=== PATIENT | male | born 1970 | race Caucasian/White ===

== ENCOUNTER 2017-04-20 14:31 | Inpatient (IN) | payer MEDICARE, SELFPAY ==
[2017-04-20 14:31] VITALS: BP 142/99; PULSE 110; RESP 14; TEMP 37.2; O2SAT 100; BMI 23.5
--- NOTE | 2017-04-20 15:21 | CT_ITS ---
STUDY: CT ABDOMEN AND PELVIS WITHOUT CONTRAST REASON FOR EXAM: Male, 47 years old. Small bowel obstruction. History of metastatic colon cancer, colectomy 2012. Also history of partial hepatectomy, cholecystectomy, right ureteral stent. RADIATION DOSAGE (If Supplied By Facility): CTDIvol = ( 9.71 ) mGy, DLP = ( 529.80 ) mGycm TECHNIQUE: Transaxial images were obtained from the dome of the diaphragm to the symphysis pubis without oral contrast, and without intravenous contrast. Sagittal and coronal images were reconstructed. Individualized dose optimization techniques were used for this CT. COMPARISON: CT abdomen pelvis April 20, 2012. FINDINGS: On the first image, there is a possible spiculated nodule in the lingula of the left upper lobe 10 mm. Subsegmental airspace disease with probable atelectasis seen in the right base, predominantly the posterolateral right lower lobe The visualized portions of the heart are within normal limits. There is a suture/clip line along the expected level of the falciform ligament, and the left/medial lobe of liver is absent. There is heterogeneous density of the liver. A 6-7 mm low-density is again noted in the posterior margin of the right lobe on series 1002 image 43, but no other focal lesion is clearly defined. The portal vein diameter is 15.5 mm. There are surgical clips in the gallbladder fossa consistent with a prior cholecystectomy. The common bile duct diameter is 5 mm. Normal spleen. Normal pancreas. Normal bilateral adrenal glands. There is a double-J ureteral stent extending from the right renal pelvis to the urinary bladder. There is moderate hydroureteronephrosis, unchanged to slightly worsened from previous exam when a stent wasn't present. Normal left kidney. There is a very small hiatal hernia. There is a suture line around the mid rectum. In the low abdomen there is poorly defined, irregular, spiculated mesenteric soft tissue density that is adherent to/retracting adjacent loops of colon and small bowel. The boundaries of closely adjacent bowel loops are difficult to discern, but this appears to be the transition point of a few distended gas and fluid filled segments of small bowel extending from the upper to mid/low abdomen. Normal caliber of the colon. There is non-visualization of the appendix. There is ill-defined mild stranding with nodularity as well as minimally complicated/proteinaceous fluid in the right anterolateral omentum, worrisome for neoplastic deposits. There is mild atherosclerotic calcification of the abdominal aorta, without a demonstrated aneurysm. Normal inferior vena cava. Normal retroperitoneum. Normal urinary bladder. There are coarse calcifications in the bilateral seminal vesicles.Normal size prostate gland, with vague 9 mm mildly hyperdense nodule as right posterior margin. There is a right-sided inguinal hernia containing adipose tissue. There is a left-sided inguinal hernia containing adipose tissue. There is degenerative disc height narrowing and endplate spondylosis at L5-S1. Moderately well-defined cystic degenerative change seen in the anterior superior neck of the right femur. CT/Abdomen/Pelvis without Cont IMPRESSION: 1. Findings strongly suspicious for peritoneal/omental metastatic neoplasia in the right anterolateral abdomen. 2. Prior surgery at the level the rectum. Above this, there are several loops of inseparable small bowel and colon, with the appearance of poorly defined, irregular shaped retractile soft tissue between the segments, either scar or additional neoplasia. It is difficult to define one bowel segment from another at this level, but this appears to be the transition point of a mild to moderate partial small bowel obstruction. No free gas. 3. Double-J right ureteral stent in place. However, there is moderate right hydroureteronephrosis that is slightly worsened from 2013, when the ureteral stent was not present. 4. Left partial hepatectomy. The remnant liver has a heterogeneous texture. A small lesion/cyst in the posterior right lobe is stable, but other possible liver masses are not clearly defined. 5. Prior cholecystectomy. 6. 10 mm spiculated nodule suggested in the lingula of the left upper lobe on the first image. There is probable subsegmental atelectasis in the right lung base. 7. Coarse calcifications in the bilateral seminal vesicles. Vague 9 mm hyperdense nodule suggested in the right posterior margin of the prostate gland. If clinically warranted, this can be further characterized with MRI or transrectal ultrasound. 8. Bilateral fat-containing inguinal hernias are grossly unchanged. Electronically Signed: Omar Berkowitz MD at 16:52 EST , Service support ,
[2017-04-20 15:30] LABS: Absolute Lymphocyte Count 0.92 X10^3/ul (0.83-4.51); Absolute Neutrophil Count 3.8 X10^3/uL (2.0-7.7); Eosinophil# 0.07 X10^3/uL; Eosinophils% 1.4 % (0-5); Hematocrit 43.5 % (40-54); Hemoglobin 14.3 g/dl (13.0-16.5); Lymphocyte # 0.92 X10^3/ul (4.0); Lymphocyte % 18.5 % (19-41); Mean Corp Hgb Conc 32.9 g/gl (32-36); Mean Corpuscular Hgb 31.6 pg (27.0-32.0); Mean Platelet Vol. 9.4 fl (6.2-12.0); Monocyte# 0.23 X10^3/uL; Monocyte% 4.6 % (0-10); Neutrophil # 3.75 X10^3/uL (2.7-7.7); Neutrophil % 75.3 % (47-70); Platelet Count 273 K/mm3 (150-450); RBC Distribution Width SD 48.6 fl (35.1-43.9); Red Blood Count 4.53 M/mm3 (4.6-6.2)
[2017-04-20 15:31] LABS: POSITIVE COUNT NO; POSITIVE DIFFERENTIAL NO; POSITIVE MORPHOLOGY NO
[2017-04-20 15:49] LABS: AST(SGOT) 19 U/L (15-37); Alanine Aminotransfer ALT/SGPT 27 U/L (16-61); Albumin, Serum 3.2 g/dL (3.2-5.0); Alkaline Phosphatase 97 U/L (45-117); Anion Gap 8 (5-15); BUN 12 mg/dL (7-18); BUN/Creat Ratio 13.9 RATIO (10-20); Calcium,Total 8.5 mg/dL (8.5-10.1); Chloride 108 mmol/L (98-107); Creatinine, Serum 0.86 mg/dL (0.70-1.30); EST Glomerular Filtration Rate 100 mL/min (>60); Est Glom Filt Rate - Afr Amer 121 mL/min (>60); Estimated Creatinine Clearance 108.46 ml/min; Globulin 3.6 g/dL (2.2-4.2); Glucose 95 mg/dL (74-106); Lipase 123 U/L (73-393); Potassium 3.5 mmol/L (3.5-5.1); Protein, Total 6.8 g/dL (6.4-8.2); Sodium Level 142 mmol/L (136-145)
[2017-04-20] MEDS: HYDROmorphone 1 MG/ML Syringe IV (15:49)
[2017-04-20] MEDS: 0.9% Normal Saline 1,000 ML 1000 ML IV (15:49)
[2017-04-20] MEDS: Ondansetron 4 MG/2 ML Vial IV (15:49)
--- NOTE | 2017-04-20 17:43 | CT_ITS ---
STUDY: CT ABDOMEN AND PELVIS WITHOUT CONTRAST REASON FOR EXAM: Male, 47 years old. Bowel obstruction. RADIATION DOSAGE (If Supplied By Facility): CTDIvol = ( 8.14 ) mGy, DLP = ( 434.99 ) mGycm TECHNIQUE: Transaxial images were obtained from the dome of the diaphragm to the symphysis pubis with oral contrast, and without intravenous contrast. Sagittal and coronal images were reconstructed. Individualized dose optimization techniques were used for this CT. COMPARISON: Including earlier the same day and April 20, 2012. FINDINGS: There is right lower lung airspace consolidation. There is 0.0 cm left lower lung nodule. The visualized portions of the heart are within normal limits. Partial resection of the left side of the liver. There is stable 7 mm hypodensity in the right lobe Normal gallbladder and extrahepatic biliary system. Normal spleen. Normal pancreas. Normal bilateral adrenal glands. There is stent extending from the right renal pelvis to the urinary bladder. There is moderate right hydronephrosis. Normal left kidney. There is a small hiatal hernia. There are dilated loops of the small intestine with a non-distended colon consistent with a small bowel obstruction. There is transition point in the right lower quadrant. Postoperative change of the distal colon. There is non-visualization of the appendix. There are ill-defined peritoneal and/or omental masses in the right mid abdomen with ascites, series 2 images the through There is atherosclerotic calcification of the abdominal aorta, without a demonstrated aneurysm. Normal inferior vena cava. Normal retroperitoneum. Normal urinary bladder. There is absence of the uterus consistent with a prior hysterectomy. Normal abdominal wall. There is degenerative change at L5-S1. CT/Abdomen/Pel W ORAL Cont Only IMPRESSION: Small bowel obstruction. Transition point in the right lower quadrant. Peritoneal carcinomatosis. Right lower lung consolidation. Left lower lung nodule. Right hydronephrosis with stent in place. Electronically Signed: Phillip Hwang MD at 20:04 EST , Service support ,
[2017-04-20 17:50] VITALS: BP 134/96; PULSE 96; RESP 18; O2SAT 97
--- NOTE | 2017-04-20 19:31 | ED.VISSUMM ---
- ER Visit Summary Date of Service: 04/20/17 Chief Complaint: Abdominal pain History of Present Illness: The patient is a [address] Haynes. He reports that he has diffuse abdominal pain that began approximately 3 weeks ago. Is a continuous waxing and waning pain. Describes it as aching and cramping. Is 7 out of 10 at worst and 410 currently. Is worsened by eating. Is relieved by nothing. He reports he has been nausea and vomited 2-3?2 days ago. He did not throw up yesterday or today. He reports that he took 2 doses of MiraLAX approximately a week ago without success. He took a stool softener 2 days ago. Reports he has had 2 episodes of a small amount of diarrhea in the past 3 days. He does complain of decreased flatus. Also complains of decreased urinary output. Patient has a history of colon cancer with metastases to the liver and lungs. He has had a partial liver resection, partial colectomy, and is currently on oral chemotherapy. He denies any fever or chills. He does have a chronic cough that is unchanged. Physical Examination: Vitals: Stable. Afebrile. General: Well-nourished and well-developed. Head: Normocephalic atraumatic. Neck: Supple, no lymphadenopathy. No JVD. Nontender. Cardiovascular: Regular rate and rhythm. No murmurs. Respiratory: No respiratory distress. Clear to auscultation bilaterally. Abdominal: Soft, mild diffuse tenderness to palpation, slight distention and hypoactive bowel sounds. No guarding, rebound, or peritoneal signs. Back: Nontender. Extremities: Nontender, no edema. Skin: Normal color, no rash. Neurologic: Alert and oriented ?3. Cranial nerves II through XII are intact. Normal strength and sensation. Psych: Normal affect. Test Results: CBC is remarkable for segment neutrophils of 75 and lymphocytes of 18. Chem-7 is more for chloride 108. LFTs are normal. Lipase is normal. Clinical Impression(s) from Imaging Studies Abdomen/Pelvis CT 04/20/17 15:21 IMPRESSION: 1. Findings strongly suspicious for peritoneal/omental metastatic neoplasia in the right anterolateral abdomen. 2. Prior surgery at the level the rectum. Above this, there are several loops of inseparable small bowel and colon, with the appearance of poorly defined, irregular shaped retractile soft tissue between the segments, either scar or additional neoplasia. It is difficult to define one bowel segment from another at this level, but this appears to be the transition point of a mild to moderate partial small bowel obstruction. No free gas. 3. Double-J right ureteral stent in place. However, there is moderate right hydroureteronephrosis that is slightly worsened from 2013, when the ureteral stent was not present. 4. Left partial hepatectomy. The remnant liver has a heterogeneous texture. A small lesion/cyst in the posterior right lobe is stable, but other possible liver masses are not clearly defined. 5. Prior cholecystectomy. 6. 10 mm spiculated nodule suggested in the lingula of the left upper lobe on the first image. There is probable subsegmental atelectasis in the right lung base. 7. Coarse calcifications in the bilateral seminal vesicles. Vague 9 mm hyperdense nodule suggested in the right posterior margin of the prostate gland. If clinically warranted, this can be further characterized with MRI or transrectal ultrasound. 8. Bilateral fat-containing inguinal hernias are grossly unchanged. Abdomen CT 04/20/17 17:43 IMPRESSION: Small bowel obstruction. Transition point in the right lower quadrant. Peritoneal carcinomatosis. Right lower lung consolidation. Left lower lung nodule. Right hydronephrosis with stent in place. Emergency Department Course and Treatment: Patient had his pain treated with Dilaudid and was given Zofran IV. He has not vomited or had diarrhea while here. Treatment Plan: He was discussed with Dr. Haynes and Dr. Hung. A CT abdomen and pelvis with p.o. contrast will be obtained tonight to see if there is a transition point for the partial small bowel obstruction. This will be followed with a plain film tomorrow to see if the contrast is moving passed any personal obstructions. Patient does understand if this is not improving with conservative treatment that he may require a surgery. He also understands that if that surgery is necessary it could potentially require transfer to a tertiary care center. He had his prior surgeries done at [facility] by Dr. Rivera. Patient was also discussed with Dr. Charles who has admitted him. Disposition: Admitted in stable condition. Impression: 1. Peritoneal/omental metastatic disease. 2. Colon cancer on chemotherapy. 3. Small bowel obstruction. This note was generated with [employer] software. It may contain incorrect words, spelling, and punctuation that were not noted in review of the chart prior to signing ED Disposition - Plan for ED Patient: Chief Complaint: Abd Pain Referrals: Care Physician,No Primary [Primary Care Provider] -
[2017-04-20 20:11] VITALS: BP 147/101; PULSE 102; RESP 18; O2SAT 98
--- NOTE | 2017-04-20 21:11 | PCM.HP.STD ---
Problem List (1) Colon cancer metastasized to liver Status: Chronic (2) SBO (small bowel obstruction) Status: Acute History of Present Illness Date of Admission: 04/20/17 Chief Complaint: abdominal pain The patient is a 47 year old M with a known history of a stage IV colon cancer presents with a three-week history of abdominal pain. Patient states that he has had some abdominal pain with distention over the past few weeks. Thought was related with constipation so took some stool softeners which did give him some diarrhea but did not alleviate his abdominal pain. Patient is also been having some intermittent nausea and vomiting sometimes associated with eating and drinking. So given the fact the patient was not getting better patient presented to the emergency room. Patient underwent a CAT scan that showed a likely small bowel obstruction with a transition point. Dr. Giang, of oncology was contacted and told the emergency room physician that he is concerned patient may need a diverting colostomy. Dr. Hung, of general surgery, was contacted by the emergency room and is and would evaluate the patient's case in the morning. Is feeling fairly comfortable at this time. Patient states that he did have a significant bowel obstruction when his colon cancer was diagnosed several years back. At that time his abdominal pain was much more severe and was not passing any gas at that time. [] Past Medical History Past Medical History (Chronic Problems): Chronic Problems Colon cancer metastasized to liver (Chronic) Allergies No Known Allergies Allergy (Verified 04/20/17 14:34) Home Medications: Ambulatory Orders Medication Instructions Recorded Omeprazole [Prilosec] 20 mg PO DAILY 08/06/15 Oxycodone HCl/Acetaminophen 1 tablet PO Q6H PRN PRN 08/06/15 [Percocet 5/325] Surgical History: - - Partial colectomy. Partial hepatectomy. Ureteral stents. Psychiatric History: No pertinent psych hx Smoking Status: Former smoker Tobacco Use: Non-smoker Alcohol: Occasional - States that he drinks 3 vodka cranberries per day. Drugs: None - *Family History Maternal History Items: - - No history of colon cancer Review of Systems Constitutional: Reports: - - States that he has cut back on what he is eating given his abdominal complaints at this time.. Denies: Anorexia, Chills, Fever Eyes: Denies: Blurred vision, Double vision HEENT: Denies: Head Aches, Sinus Congestion, Sinus Drainage Cardiovascular: Denies: Chest Pain, Palpitations Respiratory: Denies: Cough, Shortness of breath at rest, Sputum production Gastrointestinal: Reports: Abdominal Pain, Diarrhea, Nausea, Vomiting Genitourinary: Denies: Dysuria Musculoskeletal: Denies: Joint Pain, Joint Tenderness Skin: Denies: Rash, Wounds Neurological: Denies: Numbness, Tingling, Focal weakness Psychiatric: Denies: Anxiety, Depression Endocrine: Denies: Change in Body Habitus, Heat/ Cold Intolerance Hematologic/ Lymphatic: Denies: Easy Bruising, Easy Bleeding, Hx of blood clot VTE Information - Inpt Only VTE Present on Admission: No VTE Pharm Prophylaxis ordered?: Yes Patient Problems: Active and Suspected Problems SBO (small bowel obstruction) (Acute) - Physical Exam General: Alert, Cooperative, No apparent distress, - - No acute distress. HEENT: Atraumatic, Normocephalic, - - No icterus Oral: Moist Mucosa, No Gingival or Mucosal Lesions/ Ulcerations Neck: No Nodes, Thyroid Normal Size and Texture Lungs: Clear to auscultation, Normal air movement, No rhonchi, No wheeze Cardiovascular: Regular rate, Regular Rhythm, Normal S1, Normal S2 Abdomen: Hypoactive Bowel Sounds, Distended - Only distended but not taut, Tender - Slightly tender. Extremities: No edema, No Calf Tenderness Skin: No rashes, No breakdown Musculoskeletal: No Tenderness to Palpation of Joints or Extremities, No Muscle Wasting Neurological: Neuro grossly intact, Sensory exam intact to light touch and pain, Coordination normal Psych/Mental Status: Normal Affect, Appropriate Vital Signs Temp Pulse Resp BP Pulse Ox 37.2 C 102 H 18 147/101 H 98 04/20/17 14:31 04/20/17 20:11 04/20/17 20:11 04/20/17 20:11 04/20/17 20:11 Oxygen Delivery Method Room Air Weight: 74.389 kg Body Mass Index (BMI) 23.5 Laboratory Tests Past 24 Hrs 04/20/17 04/20/17 15:15 15:15 WBC 5.0 RBC 4.53 L Hgb 14.3 Hct 43.5 MCV 96.0 H MCH 31.6 MCHC 32.9 RDW 14.0 RDW Differential 48.6 H Plt Count 273 MPV 9.4 Immature Gran % (Auto) 0.200 Neut % (Auto) 75.3 H Lymph % (Auto) 18.5 L [place] % (Auto) 4.6 Eos % (Auto) 1.4 Baso % (Auto) 0.0 Absolute Neuts (auto) 3.8 Absolute Lymphs (auto) 0.92 Total Counted Not Reportable Sodium 142 Potassium 3.5 Chloride 108 H Carbon Dioxide 26.0 Anion Gap 8 BUN 12 Creatinine 0.86 Estim Creat Clear Calc 108.46 Est GFR (MDRD) Af Amer 121 Est GFR (MDRD) Non-Af 100 BUN/Creatinine Ratio 13.9 Glucose 95 Calcium 8.5 Total Bilirubin 0.50 Direct Bilirubin 0.20 AST 19 ALT 27 Alkaline Phosphatase 97 Total Protein 6.8 Albumin 3.2 Globulin 3.6 Lipase 123 Clinical Impression(s) from Imaging Studies Abdomen/Pelvis CT 04/20/17 15:21 IMPRESSION: 1. Findings strongly suspicious for peritoneal/omental metastatic neoplasia in the right anterolateral abdomen. 2. Prior surgery at the level the rectum. Above this, there are several loops of inseparable small bowel and colon, with the appearance of poorly defined, irregular shaped retractile soft tissue between the segments, either scar or additional neoplasia. It is difficult to define one bowel segment from another at this level, but this appears to be the transition point of a mild to moderate partial small bowel obstruction. No free gas. 3. Double-J right ureteral stent in place. However, there is moderate right hydroureteronephrosis that is slightly worsened from 2013, when the ureteral stent was not present. 4. Left partial hepatectomy. The remnant liver has a heterogeneous texture. A small lesion/cyst in the posterior right lobe is stable, but other possible liver masses are not clearly defined. 5. Prior cholecystectomy. 6. 10 mm spiculated nodule suggested in the lingula of the left upper lobe on the first image. There is probable subsegmental atelectasis in the right lung base. 7. Coarse calcifications in the bilateral seminal vesicles. Vague 9 mm hyperdense nodule suggested in the right posterior margin of the prostate gland. If clinically warranted, this can be further characterized with MRI or transrectal ultrasound. 8. Bilateral fat-containing inguinal hernias are grossly unchanged. Electronically Signed: Omar Berkowitz MD at 16:52 EST , Service support , Abdomen CT 04/20/17 17:43 IMPRESSION: Small bowel obstruction. Transition point in the right lower quadrant. Peritoneal carcinomatosis. Right lower lung consolidation. Left lower lung nodule. Right hydronephrosis with stent in place. Electronically Signed: Phillip Hwang MD at 20:04 EST , Service support , Assessment/Plan Active and Suspected Problems SBO (small bowel obstruction) (Acute) 1. Small bowel obstruction Patient with a noted transition point may related with carcinomatosis or related with prior scar tissue. Consultation The meantime, conservative measures: IV fluids, n.p.o. except for sips and chips, pain control and antiemetics. This is not a surgical emergency at this time. 2. Stage IV colon cancer Patient was on some oral chemotherapy, presumably under the auspices of palliation. Chemotherapy be held for now in anticipation of additional surgical intervention, if necessary. Further goals of care and alternative treatments will need to be assessed by oncology. Holding off on consulting oncology at this time pending neurosurgery's input. 3. Hydronephrosis Patient with stent in place. Presumably this is related with patient's colon cancer. Patient to follow-up with Dr. Caraballo as outpatient 4. DVT prophylaxis with Lovenox Code Visit Inpatient E&M: 55587 In Hosp L3
--- NOTE | 2017-04-20 21:21 | HP.PCM_ITS ---
Problem List (1) Colon cancer metastasized to liver Status: Chronic (2) SBO (small bowel obstruction) Status: Acute History of Present Illness Date of Admission: 04/20/17 Chief Complaint: abdominal pain The patient is a 47 year old M with a known history of a stage IV colon cancer presents with a three-week history of abdominal pain. Patient states that he has had some abdominal pain with distention over the past few weeks. Thought was related with constipation so took some stool softeners which did give him some diarrhea but did not alleviate his abdominal pain. Patient is also been having some intermittent nausea and vomiting sometimes associated with eating and drinking. So given the fact the patient was not getting better patient presented to the emergency room. Patient underwent a CAT scan that showed a likely small bowel obstruction with a transition point. Dr. Giang, of oncology was contacted and told the emergency room physician that he is concerned patient may need a diverting colostomy. Dr. Hung, of general surgery, was contacted by the emergency room and is and would evaluate the patient's case in the morning. Is feeling fairly comfortable at this time. Patient states that he did have a significant bowel obstruction when his colon cancer was diagnosed several years back. At that time his abdominal pain was much more severe and was not passing any gas at that time. [] Past Medical History Past Medical History (Chronic Problems): Chronic Problems Colon cancer metastasized to liver (Chronic) Allergies No Known Allergies Allergy (Verified 04/20/17 14:34) Home Medications: Ambulatory Orders Medication Instructions Recorded Omeprazole [Prilosec] 20 mg PO DAILY 08/06/15 Oxycodone HCl/Acetaminophen 1 tablet PO Q6H PRN PRN 08/06/15 [Percocet 5/325] Surgical History: - - Partial colectomy. Partial hepatectomy. Ureteral stents. Psychiatric History: No pertinent psych hx Smoking Status: Former smoker Tobacco Use: Non-smoker Alcohol: Occasional - States that he drinks 3 vodka cranberries per day. Drugs: None - *Family History Maternal History Items: - - No history of colon cancer Review of Systems Constitutional: Reports: - - States that he has cut back on what he is eating given his abdominal complaints at this time.. Denies: Anorexia, Chills, Fever Eyes: Denies: Blurred vision, Double vision HEENT: Denies: Head Aches, Sinus Congestion, Sinus Drainage Cardiovascular: Denies: Chest Pain, Palpitations Respiratory: Denies: Cough, Shortness of breath at rest, Sputum production Gastrointestinal: Reports: Abdominal Pain, Diarrhea, Nausea, Vomiting Genitourinary: Denies: Dysuria Musculoskeletal: Denies: Joint Pain, Joint Tenderness Skin: Denies: Rash, Wounds Neurological: Denies: Numbness, Tingling, Focal weakness Psychiatric: Denies: Anxiety, Depression Endocrine: Denies: Change in Body Habitus, Heat/ Cold Intolerance Hematologic/ Lymphatic: Denies: Easy Bruising, Easy Bleeding, Hx of blood clot VTE Information - Inpt Only VTE Present on Admission: No VTE Pharm Prophylaxis ordered?: Yes Patient Problems: Active and Suspected Problems SBO (small bowel obstruction) (Acute) - Physical Exam General: Alert, Cooperative, No apparent distress, - - No acute distress. HEENT: Atraumatic, Normocephalic, - - No icterus Oral: Moist Mucosa, No Gingival or Mucosal Lesions/ Ulcerations Neck: No Nodes, Thyroid Normal Size and Texture Lungs: Clear to auscultation, Normal air movement, No rhonchi, No wheeze Cardiovascular: Regular rate, Regular Rhythm, Normal S1, Normal S2 Abdomen: Hypoactive Bowel Sounds, Distended - Only distended but not taut, Tender - Slightly tender. Extremities: No edema, No Calf Tenderness Skin: No rashes, No breakdown Musculoskeletal: No Tenderness to Palpation of Joints or Extremities, No Muscle Wasting Neurological: Neuro grossly intact, Sensory exam intact to light touch and pain , Coordination normal Psych/Mental Status: Normal Affect, Appropriate Vital Signs Temp Pulse Resp BP Pulse Ox 37.2 C 102 H 18 147/101 H 98 04/20/17 14:31 04/20/17 20:11 04/20/17 20:11 04/20/17 20:11 04/20/17 20:11 Oxygen Delivery Method Room Air Weight: 74.389 kg Body Mass Index (BMI) 23.5 Laboratory Tests Past 24 Hrs 04/20/17 04/20/17 15:15 15:15 WBC 5.0 RBC 4.53 L Hgb 14.3 Hct 43.5 MCV 96.0 H MCH 31.6 MCHC 32.9 RDW 14.0 RDW Differential 48.6 H Plt Count 273 MPV 9.4 Immature Gran % (Auto) 0.200 Neut % (Auto) 75.3 H Lymph % (Auto) 18.5 L [place] % (Auto) 4.6 Eos % (Auto) 1.4 Baso % (Auto) 0.0 Absolute Neuts (auto) 3.8 Absolute Lymphs (auto) 0.92 Total Counted Not Reportable Sodium 142 Potassium 3.5 Chloride 108 H Carbon Dioxide 26.0 Anion Gap 8 BUN 12 Creatinine 0.86 Estim Creat Clear Calc 108.46 Est GFR (MDRD) Af Amer 121 Est GFR (MDRD) Non-Af 100 BUN/Creatinine Ratio 13.9 Glucose 95 Calcium 8.5 Total Bilirubin 0.50 Direct Bilirubin 0.20 AST 19 ALT 27 Alkaline Phosphatase 97 Total Protein 6.8 Albumin 3.2 Globulin 3.6 Lipase 123 Clinical Impression(s) from Imaging Studies Abdomen/Pelvis CT 04/20/17 15:21 IMPRESSION: 1. Findings strongly suspicious for peritoneal/omental metastatic neoplasia in the right anterolateral abdomen. 2. Prior surgery at the level the rectum. Above this, there are several loops of inseparable small bowel and colon, with the appearance of poorly defined, irregular shaped retractile soft tissue between the segments, either scar or additional neoplasia. It is difficult to define one bowel segment from another at this level, but this appears to be the transition point of a mild to moderate partial small bowel obstruction. No free gas. 3. Double-J right ureteral stent in place. However, there is moderate right hydroureteronephrosis that is slightly worsened from 2013, when the ureteral stent was not present. 4. Left partial hepatectomy. The remnant liver has a heterogeneous texture. A small lesion/cyst in the posterior right lobe is stable, but other possible liver masses are not clearly defined. 5. Prior cholecystectomy. 6. 10 mm spiculated nodule suggested in the lingula of the left upper lobe on the first image. There is probable subsegmental atelectasis in the right lung base. 7. Coarse calcifications in the bilateral seminal vesicles. Vague 9 mm hyperdense nodule suggested in the right posterior margin of the prostate gland. If clinically warranted, this can be further characterized with MRI or transrectal ultrasound. 8. Bilateral fat-containing inguinal hernias are grossly unchanged. Electronically Signed: Omar Berkowitz MD at 16:52 EST , Service support , Abdomen CT 04/20/17 17:43 IMPRESSION: Small bowel obstruction. Transition point in the right lower quadrant. Peritoneal carcinomatosis. Right lower lung consolidation. Left lower lung nodule. Right hydronephrosis with stent in place. Electronically Signed: Phillip Hwang MD at 20:04 EST , Service support , Assessment/Plan Active and Suspected Problems SBO (small bowel obstruction) (Acute) 1. Small bowel obstruction * Patient with a noted transition point may related with carcinomatosis or related with prior scar tissue. * Consultation * The meantime, conservative measures: IV fluids, n.p.o. except for sips and chips, pain control and antiemetics. * This is not a surgical emergency at this time. 2. Stage IV colon cancer * Patient was on some oral chemotherapy, presumably under the auspices of palliation. * Chemotherapy be held for now in anticipation of additional surgical intervention, if necessary. * Further goals of care and alternative treatments will need to be assessed by oncology. Holding off on consulting oncology at this time pending neurosurgery' s input. 3. Hydronephrosis * Patient with stent in place. Presumably this is related with patient's colon cancer. * Patient to follow-up with Dr. Caraballo as outpatient 4. DVT prophylaxis with Lovenox Code Visit Inpatient E&M: 98691 Init Hosp L3
[2017-04-20 21:39] VITALS: BMI 23.2; BMI 23.3
[2017-04-20 22:06] VITALS: BP 140/92; PULSE 83; RESP 18; TEMP 37; O2SAT 96
[2017-04-20] MEDS: 0.9% Normal Saline 1,000 ML 125 ML IV (22:29)
[2017-04-21 04:00] VITALS: BP 122/78; PULSE 88; RESP 16; TEMP 36.9; O2SAT 99
[2017-04-21] MEDS: 0.9% NaCl VAD Flush 10 ML IV ×2 (06:05→06:06)
[2017-04-21] MEDS: 0.9% Normal Saline 1,000 ML 125 ML IV ×2 (06:18→19:41)
--- NOTE | 2017-04-21 06:21 | RAD_ITS ---
STUDY: X-RAY - ABDOMEN/PELVIS REASON FOR EXAM: Male, 47 years old. History of small bowel obstruction. TECHNIQUE: AP supine and upright views of the abdomen and pelvis. COMPARISON: Comparison is made with prior CT scan the abdomen dated April 20, 2017. FINDINGS: There is elevation of the right hemidiaphragm. Increased markings at the right lung base suggestive of a basilar atelectasis. Oral contrast from prior CT scan is seen in the colon. There is evidence of residual dilated small bowel loops with multiple air-fluid levels in the central portion of the abdomen. And air-fluid level is seen beneath the right hemidiaphragm. This is separate from bowel. On the recent CT scan of the abdomen, this appears to be the fundal portion of the stomach. A right-sided double-J stent is seen with the proximal tip in the right renal pelvis and the distal tip in the bladder. Sutures are seen in the region of the rectum. The patient is status post cholecystectomy. Normal soft tissue structures. Normal visualized osseous structures. RAD/Abd Inc Decub and/or Erect IMPRESSION: Residual dilated small bowel loops with air-fluid levels although contrast is seen throughout the colon. An air-fluid level is seen in the right upper quadrant beneath the right hemidiaphragm. This most likely represents the fundal portion of the stomach. On these CT scan, there is evidence of a rotation along the long axis of the stomach. Right basilar atelectasis with elevation of the right hemidiaphragm. Electronically Signed: Tristan Quezada MD at 9:02 EST Tel [phone], Service support ,
[2017-04-21 07:12] LABS: Absolute Lymphocyte Count 0.87 X10^3/ul (0.83-4.51); Absolute Neutrophil Count 2.6 X10^3/uL (2.0-7.7); Basophil# 0.01 X10^3/uL; Basophil% 0.3 % (0-1); Eosinophil# 0.05 X10^3/uL; Eosinophils% 1.3 % (0-5); Hematocrit 40.5 % (40-54); Hemoglobin 13.1 g/dl (13.0-16.5); Lymphocyte # 0.87 X10^3/ul (4.0); Lymphocyte % 23.1 % (19-41); Mean Corp Hgb Conc 32.3 g/gl (32-36); Mean Corpuscular Hgb 31.1 pg (27.0-32.0); Mean Corpuscular Volume 96.2 fL (80-94); Mean Platelet Vol. 9.3 fl (6.2-12.0); Monocyte% 5.3 % (0-10); Neutrophil # 2.62 X10^3/uL (2.7-7.7); Neutrophil % 69.7 % (47-70); Platelet Count 237 K/mm3 (150-450); RBC Distribution Width SD 48.4 fl (35.1-43.9); Red Blood Count 4.21 M/mm3 (4.6-6.2); White Blood Count 3.8 K/mm3 (4.4-11.0)
[2017-04-21 07:13] LABS: POSITIVE COUNT NO; POSITIVE DIFFERENTIAL NO; POSITIVE MORPHOLOGY NO
[2017-04-21 07:25] LABS: Anion Gap 11 (5-15); BUN 10 mg/dL (7-18); BUN/Creat Ratio 13.5 RATIO (10-20); Calcium,Total 8.2 mg/dL (8.5-10.1); Chloride 109 mmol/L (98-107); Creatinine, Serum 0.74 mg/dL (0.70-1.30); EST Glomerular Filtration Rate 120 mL/min (>60); Est Glom Filt Rate - Afr Amer 145 mL/min (>60); Estimated Creatinine Clearance 126.05 ml/min; Glucose 77 mg/dL (74-106); Potassium 3.8 mmol/L (3.5-5.1); Sodium Level 142 mmol/L (136-145)
[2017-04-21 10:12] VITALS: BP 122/65; PULSE 85; RESP 18; TEMP 37.1; O2SAT 99
--- NOTE | 2017-04-21 10:37 | CASEMGMT ---
BRIELLE GUAMAN Face to Face with patient for initial transition planning/care coordination assessment. BRIELLE GUAMAN introduced self and role at [facility]. Patient lying in bed, alert and oriented. Patient willing to participate in assessment and is able to answer all questions appropriately. Care providers, pharmacy, and demographics verified. See link attached. Patient wishes to discharge home, denies need for home health at this time. Patient states that he does not have a PCP but see Dr. Haynes. RN ROWENA offered to assist patient with setting up PCP, patient denied assistance and stated he will just see Dr. Haynes. Patient states he has no further needs or concerns at this time. CM to follow for discharge planning needs that may arise. Disposition Plan: Patient to discharge home with family support and follow-up plans in place.
[2017-04-21] MEDS: Enoxaparin 40 MG/0.4 ML Syringe SC (10:55)
--- NOTE | 2017-04-21 12:49 | PCM.PROGNOTE ---
Patient Problems: Active and Suspected Problems SBO (small bowel obstruction) (Acute) Subjective: Chief complaint: Follow-up of admission for small bowel obstruction. Patient seen and examined. No acute events overnight. This morning, he has no more abdominal pain. He had a bowel movement last night with loose stool. This morning, had a small bowel movement with gas and he has been passing flatus. Denied nausea vomiting. Vital signs are stable. - Physical Exam General: Alert, Oriented x3, Cooperative, No apparent distress HEENT: Atraumatic, EOMI Oral: Moist Mucosa, No Gingival or Mucosal Lesions/ Ulcerations Neck: Supple, No JVD, Negative Carotid Bruits, Trachea Midline, Thyroid Normal Size and Texture Lungs: Clear to auscultation, No rhonchi, No wheeze, No rales Cardiovascular: Regular Rhythm, Normal S1, Normal S2, No murmurs Abdomen: Bowel Sounds Present, Soft, Non Tender, Non-Distended, No Hepato-splenomegaly, Hyperactive Bowel Sounds Extremities: No clubbing, No cyanosis, No edema Skin: No rashes, No breakdown Lymphatic: No Cervical, Supraclavicular, or Inguinal Adenopathy Neurological: Cranial nerves II-XII grossly intact, Motor Exam 5/5 strength throughout Psych/Mental Status: Normal Affect, Appropriate, Alert and oriented to time, place, person, mood and affect Vital Signs Temp Pulse Resp BP Pulse Ox 98.7 F 85 18 122/65 H 99 04/21/17 10:12 04/21/17 10:12 04/21/17 10:12 04/21/17 10:12 04/21/17 10:12 Oxygen Delivery Method Room Air Weight: 162 lb 2.012 oz Body Mass Index (BMI) 23.2 Intake and Output for Last 24 Hours 04/19/17 04/20/17 04/21/17 23:59 23:59 23:59 Intake Total 933 / 933 Balance 933 / 933 Laboratory Tests Past 24 Hrs 04/21/17 04/21/17 07:00 07:00 WBC 3.8 L RBC 4.21 L Hgb 13.1 Hct 40.5 MCV 96.2 H MCH 31.1 MCHC 32.3 RDW 14.0 RDW Differential 48.4 H Plt Count 237 MPV 9.3 Immature Gran % (Auto) 0.300 Neut % (Auto) 69.7 Lymph % (Auto) 23.1 [place] % (Auto) 5.3 Eos % (Auto) 1.3 Baso % (Auto) 0.3 Absolute Neuts (auto) 2.6 Absolute Lymphs (auto) 0.87 Total Counted Not Reportable Sodium 142 Potassium 3.8 Chloride 109 H Carbon Dioxide 22.0 Anion Gap 11 BUN 10 Creatinine 0.74 Estim Creat Clear Calc 126.05 Est GFR (MDRD) Af Amer 145 Est GFR (MDRD) Non-Af 120 BUN/Creatinine Ratio 13.5 Glucose 77 Calcium 8.2 L Clinical Impression(s) from Imaging Studies Abdomen/Pelvis CT 04/20/17 15:21 IMPRESSION: 1. Findings strongly suspicious for peritoneal/omental metastatic neoplasia in the right anterolateral abdomen. 2. Prior surgery at the level the rectum. Above this, there are several loops of inseparable small bowel and colon, with the appearance of poorly defined, irregular shaped retractile soft tissue between the segments, either scar or additional neoplasia. It is difficult to define one bowel segment from another at this level, but this appears to be the transition point of a mild to moderate partial small bowel obstruction. No free gas. 3. Double-J right ureteral stent in place. However, there is moderate right hydroureteronephrosis that is slightly worsened from 2013, when the ureteral stent was not present. 4. Left partial hepatectomy. The remnant liver has a heterogeneous texture. A small lesion/cyst in the posterior right lobe is stable, but other possible liver masses are not clearly defined. 5. Prior cholecystectomy. 6. 10 mm spiculated nodule suggested in the lingula of the left upper lobe on the first image. There is probable subsegmental atelectasis in the right lung base. 7. Coarse calcifications in the bilateral seminal vesicles. Vague 9 mm hyperdense nodule suggested in the right posterior margin of the prostate gland. If clinically warranted, this can be further characterized with MRI or transrectal ultrasound. 8. Bilateral fat-containing inguinal hernias are grossly unchanged. Electronically Signed: Omar Berkowitz MD at 16:52 EST , Service support , Abdomen CT 04/20/17 17:43 IMPRESSION: Small bowel obstruction. Transition point in the right lower quadrant. Peritoneal carcinomatosis. Right lower lung consolidation. Left lower lung nodule. Right hydronephrosis with stent in place. Electronically Signed: Phillip Hwang MD at 20:04 EST , Service support , Abdomen X-Ray 04/21/17 06:21 IMPRESSION: Residual dilated small bowel loops with air-fluid levels although contrast is seen throughout the colon. An air-fluid level is seen in the right upper quadrant beneath the right hemidiaphragm. This most likely represents the fundal portion of the stomach. On these CT scan, there is evidence of a rotation along the long axis of the stomach. Right basilar atelectasis with elevation of the right hemidiaphragm. Electronically Signed: Tristan Quezada MD at 9:02 EST Tel [phone], Service support , Assessment/Plan Active and Suspected Problems SBO (small bowel obstruction) (Acute) This is a 47 years old male patient admitted because of abdominal pain and he was found to have small bowel obstruction in context of history of stage IV metastatic colon cancer. #1 small bowel obstruction: He is on IV fluids, IV morphine as needed for pain as well as IV antiemetics, started on clear liquids by general surgeons morning. Patient symptoms improved, had bowel movement last night and has been passing flatus. Skin abdomen with oral contrast reviewed, revealed small bowel obstruction with transition point at the right lower quadrant, peritoneal carcinomatosis, a right hydronephrosis with stent in place as well as a right lower lung nodule and right lower lobe consultation. At this time, I doubt pneumonia. This likely because of metastatic colon cancer which was metastasized to lungs and liver. General surgeon on the case. Vital signs are stable. Routine blood work is unremarkable, electrolytes are normal. LFTs and lipase normal. X-ray abdomen today still showing small bowel obstruction. Plan: Continue same treatment. #2 stage IV metastatic colon cancer: With metastasis to liver and lung. Status post partial colectomy, status post resection of the liver metastasis, on chemotherapy. Plan to follow-up with oncology as outpatient. #3 right-sided hydronephrosis: Status post stents. Stable, no acute issues, kidney function is normal. #4 DVT prophylaxis: Subcu Lovenox. This note was generated with [employer] dictation software. It may contain incorrect words, spelling, and punctuation that were not noted in checking the note before signing. Code Visit Inpatient E&M: 87534 Subs Hosp L2
--- NOTE | 2017-04-21 12:55 | PN_ITS ---
Patient Problems: Active and Suspected Problems SBO (small bowel obstruction) (Acute) Subjective: Chief complaint: Follow-up of admission for small bowel obstruction. Patient seen and examined. No acute events overnight. This morning, he has no more abdominal pain. He had a bowel movement last night with loose stool. This morning, had a small bowel movement with gas and he has been passing flatus. Denied nausea vomiting. Vital signs are stable. - Physical Exam General: Alert, Oriented x3, Cooperative, No apparent distress HEENT: Atraumatic, EOMI Oral: Moist Mucosa, No Gingival or Mucosal Lesions/ Ulcerations Neck: Supple, No JVD, Negative Carotid Bruits, Trachea Midline, Thyroid Normal Size and Texture Lungs: Clear to auscultation, No rhonchi, No wheeze, No rales Cardiovascular: Regular Rhythm, Normal S1, Normal S2, No murmurs Abdomen: Bowel Sounds Present, Soft, Non Tender, Non-Distended, No Hepato- splenomegaly, Hyperactive Bowel Sounds Extremities: No clubbing, No cyanosis, No edema Skin: No rashes, No breakdown Lymphatic: No Cervical, Supraclavicular, or Inguinal Adenopathy Neurological: Cranial nerves II-XII grossly intact, Motor Exam 5/5 strength throughout Psych/Mental Status: Normal Affect, Appropriate, Alert and oriented to time, place, person, mood and affect Vital Signs Temp Pulse Resp BP Pulse Ox 98.7 F 85 18 122/65 H 99 04/21/17 10:12 04/21/17 10:12 04/21/17 10:12 04/21/17 10:12 04/21/17 10:12 Oxygen Delivery Method Room Air Weight: 162 lb 2.012 oz Body Mass Index (BMI) 23.2 Intake and Output for Last 24 Hours 04/19/17 04/20/17 04/21/17 23:59 23:59 23:59 Intake Total 933 / 933 Balance 933 / 933 Laboratory Tests Past 24 Hrs 04/21/17 04/21/17 07:00 07:00 WBC 3.8 L RBC 4.21 L Hgb 13.1 Hct 40.5 MCV 96.2 H MCH 31.1 MCHC 32.3 RDW 14.0 RDW Differential 48.4 H Plt Count 237 MPV 9.3 Immature Gran % (Auto) 0.300 Neut % (Auto) 69.7 Lymph % (Auto) 23.1 [place] % (Auto) 5.3 Eos % (Auto) 1.3 Baso % (Auto) 0.3 Absolute Neuts (auto) 2.6 Absolute Lymphs (auto) 0.87 Total Counted Not Reportable Sodium 142 Potassium 3.8 Chloride 109 H Carbon Dioxide 22.0 Anion Gap 11 BUN 10 Creatinine 0.74 Estim Creat Clear Calc 126.05 Est GFR (MDRD) Af Amer 145 Est GFR (MDRD) Non-Af 120 BUN/Creatinine Ratio 13.5 Glucose 77 Calcium 8.2 L Clinical Impression(s) from Imaging Studies Abdomen/Pelvis CT 04/20/17 15:21 IMPRESSION: 1. Findings strongly suspicious for peritoneal/omental metastatic neoplasia in the right anterolateral abdomen. 2. Prior surgery at the level the rectum. Above this, there are several loops of inseparable small bowel and colon, with the appearance of poorly defined, irregular shaped retractile soft tissue between the segments, either scar or additional neoplasia. It is difficult to define one bowel segment from another at this level, but this appears to be the transition point of a mild to moderate partial small bowel obstruction. No free gas. 3. Double-J right ureteral stent in place. However, there is moderate right hydroureteronephrosis that is slightly worsened from 2013, when the ureteral stent was not present. 4. Left partial hepatectomy. The remnant liver has a heterogeneous texture. A small lesion/cyst in the posterior right lobe is stable, but other possible liver masses are not clearly defined. 5. Prior cholecystectomy. 6. 10 mm spiculated nodule suggested in the lingula of the left upper lobe on the first image. There is probable subsegmental atelectasis in the right lung base. 7. Coarse calcifications in the bilateral seminal vesicles. Vague 9 mm hyperdense nodule suggested in the right posterior margin of the prostate gland. If clinically warranted, this can be further characterized with MRI or transrectal ultrasound. 8. Bilateral fat-containing inguinal hernias are grossly unchanged. Electronically Signed: Omar Berkowitz MD at 16:52 EST , Service support , Abdomen CT 04/20/17 17:43 IMPRESSION: Small bowel obstruction. Transition point in the right lower quadrant. Peritoneal carcinomatosis. Right lower lung consolidation. Left lower lung nodule. Right hydronephrosis with stent in place. Electronically Signed: Phillip Hwang MD at 20:04 EST , Service support , Abdomen X-Ray 04/21/17 06:21 IMPRESSION: Residual dilated small bowel loops with air-fluid levels although contrast is seen throughout the colon. An air-fluid level is seen in the right upper quadrant beneath the right hemidiaphragm. This most likely represents the fundal portion of the stomach. On these CT scan, there is evidence of a rotation along the long axis of the stomach. Right basilar atelectasis with elevation of the right hemidiaphragm. Electronically Signed: Tristan Quezada MD at 9:02 EST Tel [phone], Service support , Assessment/Plan Active and Suspected Problems SBO (small bowel obstruction) (Acute) This is a 47 years old male patient admitted because of abdominal pain and he was found to have small bowel obstruction in context of history of stage IV metastatic colon cancer. #1 small bowel obstruction: He is on IV fluids, IV morphine as needed for pain as well as IV antiemetics, started on clear liquids by general surgeons morning. Patient symptoms improved, had bowel movement last night and has been passing flatus. Skin abdomen with oral contrast reviewed, revealed small bowel obstruction with transition point at the right lower quadrant, peritoneal carcinomatosis, a right hydronephrosis with stent in place as well as a right lower lung nodule and right lower lobe consultation. At this time, I doubt pneumonia. This likely because of metastatic colon cancer which was metastasized to lungs and liver. General surgeon on the case. Vital signs are stable. Routine blood work is unremarkable, electrolytes are normal. LFTs and lipase normal. X-ray abdomen today still showing small bowel obstruction. Plan : Continue same treatment. #2 stage IV metastatic colon cancer: With metastasis to liver and lung. Status post partial colectomy, status post resection of the liver metastasis, on chemotherapy. Plan to follow-up with oncology as outpatient. #3 right-sided hydronephrosis: Status post stents. Stable, no acute issues, kidney function is normal. #4 DVT prophylaxis: Subcu Lovenox. This note was generated with [employer] dictation software. It may contain incorrect words, spelling, and punctuation that were not noted in checking the note before signing. Code Visit Inpatient E&M: 71916 Subs Hosp L2
[2017-04-21] MEDS: Alteplase 2 MG/2 ML Vial IV (14:53)
[2017-04-21 16:11] VITALS: BP 132/74; PULSE 80; RESP 18; TEMP 36.6; O2SAT 98
--- NOTE | 2017-04-21 16:48 | CON.PCM_ITS ---
Problem List (1) Colon cancer metastasized to liver Status: Chronic (2) SBO (small bowel obstruction) Status: Acute (3) Ureteral obstruction, right Status: Acute Reason for Consult Date of Consultation: 04/21/17 History of Present Illness: The patient is a 47 year old M who presents with symptoms of small bowel obstruction. The patient has issues with increasing abdominal discomfort following eating for at least the past 3-4 weeks. He presents now with high- grade obstructive type symptoms. He had nausea and vomiting 2 days prior to admission. A CT scan was obtained in the emergency department, which demonstrated advanced metastatic disease with lesions both in the liver and right abdominal cavity with what appears to be significant bulky disease in the right lower quadrant area. The patient was given Gastrografin and this actually demonstrated contrast through to the colon with some improvement in his x-ray imaging of his partial small bowel obstruction. This morning. The history of his colon cancer is as follows: Developed near complete obstipation associated with intermittent rectal bleeding in late 2010/early 2011. Was referred to a car washer who performed a colonoscopy on 05/29/2011. At approximate 20 cm into the left colon, there was an obstructing mass. The scope was not able to be passed. Biopsies were obtained. The mass was tattooed and biopsy demonstrated invasive well to moderately differentiated adenocarcinoma. ? The patient was referred to the [facility] On~06/12/2011, he underwent a laparoscopic converted to open low anterior resection. The operative note indicates there were no palpable lesions on the liver. The surgical pathology demonstrated adenocarcinoma extending to the serosal surface. There was metastatic involvement of 2 of 15 lymph nodes. Pericolonic tumor deposits were observed. There was a biopsy of~right pelvic implant which demonstrated adenocarcinoma. The synoptic reports that the tumor size was 3.1 cm. It was an adenocarcinoma moderately differentiated. Tumor was present at the serosal surface. Lymphovascular invasion was noted to be present and extensive. Perineural invasion was noted to be present and extensive. There were no histologic features suggestive of microsatellite instability. Margins were negative. Radial margin was within 1 mm. 15 lymph nodes were removed, 2 were positive with extranodal extension present. Tumor deposits were noted but the exact number could not be rendered due to the extensive lymphovascular and perineural invasion. Mismatch repair protein expression was present for all 4 proteins tested. ? Radiographic studies are not available this time but the patient did undergo partial hepatectomy on 08/12/2011. The surgical pathology demonstrated there was cholelithiasis and gallbladder and the left lobe partial lobectomy demonstrated moderately differentiated adenocarcinoma consistent with metastatic colon cancer. Margins were free of disease. It appears there was only one liver metastasis per the pathology report. ? The patient was advised to receive chemotherapy but this was delayed by him until 2012. ? He underwent~right ureteral stent placement~and then received 7 cycles FOLFIRI with bevacizumab~between 05/2012 and 12/2012~at [facility]. He said the chemotherapy made him very ill and he had prolonged nausea and vomiting associated with loss of appetite, extensive diarrhea and fatigue. This caused delays in cycles. ? He underwent a~colonoscopy in September 2014. He was observed to have biopsy-proven recurrence at the anastomotic site. CEA is elevated to 78.4 ng/mL. He recalls CEA 02/2014 was 9 ng/mL. ? Previous therapy: 1) FOLFIRI with laurent x7 cycles. 2) FOLFOX x2 then with bevacizumab x3 cycles until 01/21/2015. 3) FOLFIRI with bevacizumab x5 cycles. 4) FOLFIRI x8 cycles. ? Current therapy: 1) FOLFIRI with panitumumab. Past Medical History Past Medical History (Chronic Problems): Chronic Problems Colon cancer metastasized to liver (Chronic) Allergies No Known Allergies Allergy (Verified 04/21/17 13:06) Home Medications: Ambulatory Orders Medication Instructions Recorded Omeprazole [Prilosec] 20 mg PO DAILY 08/06/15 Oxycodone HCl/Acetaminophen 1 tablet PO Q6H PRN PRN 08/06/15 [Percocet 5/325] Surgical History: - - Partial colectomy. Partial hepatectomy. Ureteral stents. Psychiatric History: No pertinent psych hx Smoking Status: Former smoker Tobacco Use: Non-smoker Alcohol: Occasional - States that he drinks 3 vodka cranberries per day. Drugs: None - *Family History Maternal History Items: - - No history of colon cancer Review of Systems Constitutional: Reports: Anorexia, Fatigue. Denies: Chills, Fever, Weight Change HEENT: Denies: Head Aches, Sinus Congestion, Sinus Drainage Cardiovascular: Denies: Chest Pain, Palpitations Respiratory: Denies: Cough, Shortness of breath at rest, Sputum production Gastrointestinal: Reports: Abdominal Pain, Nausea, Vomiting Genitourinary: Denies: Dysuria Musculoskeletal: Denies: Joint Pain, Joint Tenderness Skin: Denies: Rash, Wounds Neurological: Denies: Numbness, Tingling, Focal weakness Psychiatric: Denies: Anxiety, Depression, Homicidal Ideations, Suicidal Ideations Hematologic/ Lymphatic: Denies: Easy Bruising, Easy Bleeding Patient Problems: Active and Suspected Problems SBO (small bowel obstruction) (Acute) - Physical Exam General: Alert, Oriented x3, Cooperative HEENT: Atraumatic, PERRLA, EOMI, Normocephalic Neck: Supple, No JVD, Negative Carotid Bruits Lungs: Clear to auscultation, Normal air movement Cardiovascular: Regular rate, No murmurs Abdomen: Bowel Sounds Present, Soft, Non Tender, Distended - mildly, Tender - mildly, - - Well-healed transverse upper abdominal and lower midline incisions Extremities: No edema, Capillary Refill Less than 3 Seconds Skin: No rashes, No breakdown Musculoskeletal: No Tenderness to Palpation of Joints or Extremities Neurological: Cranial nerves II-XII grossly intact Psych/Mental Status: Normal Affect, Appropriate Vital Signs Temp Pulse Resp BP Pulse Ox 97.8 F 80 18 132/74 H 98 04/21/17 16:11 04/21/17 16:11 04/21/17 16:11 04/21/17 16:11 04/21/17 16:11 Oxygen Delivery Method Room Air Weight: 73.539 kg Body Mass Index (BMI) 23.2 Intake and Output for Last 24 Hours 04/19/17 04/20/17 04/21/17 23:59 23:59 23:59 Intake Total 933 / 933 Balance 933 / 933 Laboratory Tests Past 24 Hrs 04/21/17 04/21/17 07:00 07:00 WBC 3.8 L RBC 4.21 L Hgb 13.1 Hct 40.5 MCV 96.2 H MCH 31.1 MCHC 32.3 RDW 14.0 RDW Differential 48.4 H Plt Count 237 MPV 9.3 Immature Gran % (Auto) 0.300 Neut % (Auto) 69.7 Lymph % (Auto) 23.1 [place] % (Auto) 5.3 Eos % (Auto) 1.3 Baso % (Auto) 0.3 Absolute Neuts (auto) 2.6 Absolute Lymphs (auto) 0.87 Total Counted Not Reportable Sodium 142 Potassium 3.8 Chloride 109 H Carbon Dioxide 22.0 Anion Gap 11 BUN 10 Creatinine 0.74 Estim Creat Clear Calc 126.05 Est GFR (MDRD) Af Amer 145 Est GFR (MDRD) Non-Af 120 BUN/Creatinine Ratio 13.5 Glucose 77 Calcium 8.2 L Assessment/Plan Active and Suspected Problems SBO (small bowel obstruction) (Acute) advanced metastatic colon cancer with metastases to the liver, intraperitoneal metastases and low anterior resection, sigmoid metastases, now with high-grade partial small bowel obstruction Today's KUB demonstrated contrast to the colon and improvement but no complete improvement of small bowel distention. I would currently recommend clear liquids and see how the patient is able to tolerate these fluids. Reviewing the current CAT scan and a previous CAT scan through the [facility] on March 19, the patient has likely multiple areas of metastatic disease within the peritoneal cavity. Further, there is a report that he had biopsy-proven recurrence at the anastomosis in the low anterior area. My plan is to obtain a follow-up KUB to see if his bowel gas pattern is improving. I would also then consider a small bowel follow-through to see if he has multiple areas of partial small bowel obstructions or if this more seems to be contained to the right lower quadrant. I will discuss with Dr. Haynes whether he feels follow-up flexible sigmoidoscopy would be prudent to see if he has progression of his known disease at the anastomotic area. Debridement on these findings, might consider exploration with internal bypass versus ileostomy. I have also contacted surgeons at [facility] to see if they see any role in a more aggressive surgical procedure and debulking for this individual.
[2017-04-21 19:41] VITALS: BP 131/84; PULSE 71; RESP 18; TEMP 36.6; O2SAT 97
--- NOTE | 2017-04-21 22:19 | NURSING ---
Pt has Ensure Alive ordered but on clear liquid diet. Offered to get Ensure Alive changed to Ensure Clear but pt refused and said he does not like Ensure Clear.
[2017-04-22 01:41] VITALS: BP 128/83; PULSE 86; RESP 16; TEMP 36.4; O2SAT 95
[2017-04-22] MEDS: 0.9% Normal Saline 1,000 ML 125 ML IV ×2 (03:34→10:31)
--- NOTE | 2017-04-22 04:31 | NURSING ---
Pt off floor for KUB with [employer]
--- NOTE | 2017-04-22 05:00 | RAD_ITS ---
STUDY: X-RAY - ABDOMEN/PELVIS REASON FOR EXAM: Male, 47 years old. Small bowel obstruction and history of colon cancer TECHNIQUE: AP supine and upright views of the abdomen and pelvis. COMPARISON: April 21, 2017 FINDINGS: Normal visualized lung bases. Progressing obstructive bowel gas pattern with multiple acute air-fluid levels within distended small bowel. Small bowel loops measure up to 6.1 cm in diameter. There is no demonstrated free abdominal air. Transureteral stent on the right. Cholecystectomy clips. Pelvic phleboliths. Pelvic sutures. Normal visualized osseous structures. RAD/Abd Inc Decub and/or Erect IMPRESSION: Progressing obstructive bowel gas pattern. Electronically Signed: Andrew Gates MD at 6:23 EST Tel , Service support ,
--- NOTE | 2017-04-22 06:55 | CT_ITS ---
STUDY: CT ABDOMEN AND PELVIS WITHOUT CONTRAST REASON FOR EXAM: Male, 47 years old. Small bowel obstruction. Colon cancer with chemotherapy and radiation. Liver metastases with partial hepatectomy. RADIATION DOSAGE (If Supplied By Facility): CTDIvol = ( 8.73 ) mGy, DLP = ( 508.36 ) mGycm TECHNIQUE: Transaxial images were obtained from the dome of the diaphragm to the symphysis pubis with oral contrast, and without intravenous contrast. Sagittal and coronal images were reconstructed. Individualized dose optimization techniques were used for this CT. COMPARISON: CT of the abdomen and pelvis, April 20, 2017. FINDINGS: There is a small right pleural effusion with atelectatic changes at the right lung base and slight elevation of the right hemidiaphragm. There is atelectatic changes along the left anterior oblique fissure. The visualized portions of the heart are within normal limits. There is evidence of left hepatectomy. Surgical scars are seen along the medial aspect of the liver. The remaining liver appears to be of uniform density without focal mass. The gallbladder is absent. There is no visualized ductal dilatation. Normal spleen. Normal pancreas. Normal bilateral adrenal glands. The right kidney is of normal size and cortical thickness. There is marked hydronephrosis and hydroureter. There is a ureteral stent with its tip in the distal renal pelvis/proximal ureter. This extends downward into the bladder lumen. The left kidney is of normal size and cortical thickness. There is diffuse hydronephrosis and hydroureter to the level of the bladder without filling defect. There is a type I hiatal hernia. The stomach is otherwise unremarkable. There is diffuse dilatation of mid to distal small bowel loops with air-fluid levels. Proximal jejunum is unremarkable. There is dilatation of the mid and distal small bowel loops with a transition zone in the right central abdomen, best seen on images 134 through 137 and series 4 and on images 50 through 56 of series 601. There is no evidence of small bowel obstruction with passage of contrast seen into the colon. The proximal colon is distended with air and contrast. The descending and rectosigmoid colon are nondistended. There is contrast seen extending into the rectum. There is non-visualization of the appendix. Minimal atherosclerotic changes of the abdominal aorta without aneurysm. Normal inferior vena cava. Normal retroperitoneum. Normal urinary bladder. Normal prostate. There are calcifications within the seminal vesicles. There is no pelvic lymphadenopathy. No free air is seen within the peritoneal cavity. There is fluid in the right paracolic [place] with minimal stranding and nodularity in the adjacent mesenteric fat extending downward to the level of the distal small bowel loops and ileocolonic junction. Again seen is a 3.5 x 1.9 x 2.9 cm soft tissue mass in this region. There is adjacent pocket of contrast and air along the peritoneal surface of the right lower abdomen. When compared to prior study. This appears to be a compressed portion of the cecum rather than a separate fluid collection. The abdominal wall is otherwise grossly unremarkable. Macroglossia osseous. CT/Abdomen/Pel W ORAL Cont Only IMPRESSION: 1. Continued incomplete small bowel obstruction with the transition zone in the right lower quadrant. 2. Continued ascites in the right paracolic gutter with nodularity of the adjacent mesentery and soft tissue mass suggesting metastatic disease. 3. Increasing dilatation of the left renal collecting system and ureter when compared to the prior study. There is no evidence of filling defect. Question adhesion. 4. No other major change from prior CT. Electronically Signed: Eugenio Ortiz DO at 11:22 EST Tel [phone], Service support ,
[2017-04-22 07:41] VITALS: BP 136/86; PULSE 77; RESP 16; TEMP 36.6; O2SAT 94
--- NOTE | 2017-04-22 09:29 | PCM.PROGNOTE ---
Patient Problems: Active and Suspected Problems SBO (small bowel obstruction) (Acute) Subjective: Chief complaint: Follow-up after admission for a small bowel obstruction. Patient seen and examined. No acute events overnight. He still complains of mild abdominal pain. Denied nausea vomiting. He has been having diarrhea. Vital signs are stable. - Physical Exam General: Alert, Oriented x3, Cooperative, No apparent distress HEENT: Atraumatic, PERRLA, EOMI Oral: Moist Mucosa, No Gingival or Mucosal Lesions/ Ulcerations Neck: Supple, No JVD, Negative Carotid Bruits, Trachea Midline, Thyroid Normal Size and Texture Lungs: Clear to auscultation, No rhonchi, No wheeze, Diminished Cardiovascular: Regular rate, Regular Rhythm, Normal S1, Normal S2, No murmurs, PMI Normal Abdomen: Bowel Sounds Present, Soft, Non-Distended, No Hepato-splenomegaly, Hypoactive Bowel Sounds Extremities: No clubbing, No cyanosis, No edema Skin: No rashes, No breakdown Lymphatic: No Cervical, Supraclavicular, or Inguinal Adenopathy Neurological: Cranial nerves II-XII grossly intact, Motor Exam 5/5 strength throughout Psych/Mental Status: Normal Affect, Appropriate, Alert and oriented to time, place, person, mood and affect Vital Signs Temp Pulse Resp BP Pulse Ox 97.9 F 77 16 136/86 H 94 04/22/17 07:41 04/22/17 07:41 04/22/17 07:41 04/22/17 07:41 04/22/17 07:41 Oxygen Delivery Method Room Air Weight: 162 lb 2.012 oz Body Mass Index (BMI) 23.2 Intake and Output for Last 24 Hours 04/20/17 04/21/17 04/22/17 23:59 23:59 23:59 Intake Total 2333 / 2333 1672 / 1672 Output Total 600 / 600 800 / 800 Balance 1733 / 1733 872 / 872 Assessment/Plan Active and Suspected Problems SBO (small bowel obstruction) (Acute) This is a 47 years old male patient admitted because of abdominal pain and he was found to have small bowel obstruction in context of history of stage IV metastatic colon cancer. #1 small bowel obstruction: Remained on on IV fluids, IV morphine as needed for pain as well as IV antiemetics, on clear liquids by general surgeons morning. X-ray abdomen from today still revealing progressing small bowel obstruction. Vital signs are stable, CBC and BMP are unremarkable. Electrolytes are within normal limits. General surgery recommended to repeat CT scan abdomen and pelvis with contrast today. #2 stage IV metastatic colon cancer: With metastasis to liver and lung. Status post partial colectomy, status post resection of the liver metastasis, on chemotherapy. Plan to follow-up with oncology as outpatient. #3 right-sided hydronephrosis: Status post stents. Stable, no acute issues, kidney function is normal. #4 DVT prophylaxis: Subcu Lovenox. This note was generated with [employer] dictation software. It may contain incorrect words, spelling, and punctuation that were not noted in checking the note before signing. Code Visit Inpatient E&M: 93911 Subs Hosp L2
--- NOTE | 2017-04-22 09:32 | PN_ITS ---
Patient Problems: Active and Suspected Problems SBO (small bowel obstruction) (Acute) Subjective: Chief complaint: Follow-up after admission for a small bowel obstruction. Patient seen and examined. No acute events overnight. He still complains of mild abdominal pain. Denied nausea vomiting. He has been having diarrhea. Vital signs are stable. - Physical Exam General: Alert, Oriented x3, Cooperative, No apparent distress HEENT: Atraumatic, PERRLA, EOMI Oral: Moist Mucosa, No Gingival or Mucosal Lesions/ Ulcerations Neck: Supple, No JVD, Negative Carotid Bruits, Trachea Midline, Thyroid Normal Size and Texture Lungs: Clear to auscultation, No rhonchi, No wheeze, Diminished Cardiovascular: Regular rate, Regular Rhythm, Normal S1, Normal S2, No murmurs, PMI Normal Abdomen: Bowel Sounds Present, Soft, Non-Distended, No Hepato-splenomegaly, Hypoactive Bowel Sounds Extremities: No clubbing, No cyanosis, No edema Skin: No rashes, No breakdown Lymphatic: No Cervical, Supraclavicular, or Inguinal Adenopathy Neurological: Cranial nerves II-XII grossly intact, Motor Exam 5/5 strength throughout Psych/Mental Status: Normal Affect, Appropriate, Alert and oriented to time, place, person, mood and affect Vital Signs Temp Pulse Resp BP Pulse Ox 97.9 F 77 16 136/86 H 94 04/22/17 07:41 04/22/17 07:41 04/22/17 07:41 04/22/17 07:41 04/22/17 07:41 Oxygen Delivery Method Room Air Weight: 162 lb 2.012 oz Body Mass Index (BMI) 23.2 Intake and Output for Last 24 Hours 04/20/17 04/21/17 04/22/17 23:59 23:59 23:59 Intake Total 2333 / 2333 1672 / 1672 Output Total 600 / 600 800 / 800 Balance 1733 / 1733 872 / 872 Assessment/Plan Active and Suspected Problems SBO (small bowel obstruction) (Acute) This is a 47 years old male patient admitted because of abdominal pain and he was found to have small bowel obstruction in context of history of stage IV metastatic colon cancer. #1 small bowel obstruction: Remained on on IV fluids, IV morphine as needed for pain as well as IV antiemetics, on clear liquids by general surgeons morning. X -ray abdomen from today still revealing progressing small bowel obstruction. Vital signs are stable, CBC and BMP are unremarkable. Electrolytes are within normal limits. General surgery recommended to repeat CT scan abdomen and pelvis with contrast today. #2 stage IV metastatic colon cancer: With metastasis to liver and lung. Status post partial colectomy, status post resection of the liver metastasis, on chemotherapy. Plan to follow-up with oncology as outpatient. #3 right-sided hydronephrosis: Status post stents. Stable, no acute issues, kidney function is normal. #4 DVT prophylaxis: Subcu Lovenox. This note was generated with [employer] dictation software. It may contain incorrect words, spelling, and punctuation that were not noted in checking the note before signing. Code Visit Inpatient E&M: 53938 Subs Hosp L2
[2017-04-22] MEDS: Enoxaparin 40 MG/0.4 ML Syringe SC (10:28)
--- NOTE | 2017-04-22 10:42 | PCM.PN.SRG ---
Patient Problems: Active and Suspected Problems SBO (small bowel obstruction) (Acute) - Physical Exam General: Alert, Oriented x3 Lungs: Clear to auscultation, Normal air movement Cardiovascular: Regular rate, Regular Rhythm Abdomen: Bowel Sounds Present, Soft, Distended - mildly Vital Signs Temp Pulse Resp BP Pulse Ox 97.9 F 77 16 136/86 H 94 04/22/17 07:41 04/22/17 07:41 04/22/17 07:41 04/22/17 07:41 04/22/17 07:41 Oxygen Delivery Method Room Air Weight: 73.539 kg Body Mass Index (BMI) 23.2 Intake and Output for Last 24 Hours 04/20/17 04/21/17 04/22/17 23:59 23:59 23:59 Intake Total 2333 / 2333 1672 / 1672 Output Total 600 / 600 800 / 800 Balance 1733 / 1733 872 / 872 Assessment/Plan Active and Suspected Problems SBO (small bowel obstruction) (Acute) advanced metastatic colon cancer with metastases to the liver, intraperitoneal metastases and low anterior resection, sigmoid metastases, now with high-grade partial small bowel obstruction Today's KUB demonstrated increased small bowel distention. I would currently recommend clear liquids and see how the patient is able to tolerate these fluids. Reviewing the current CAT scan and a previous CAT scan through the [facility] on March 19, the patient has likely multiple areas of metastatic disease within the peritoneal cavity. Further, there is a report that he had biopsy-proven recurrence at the anastomosis in the low anterior area. I discussed with the patient today that given his peritoneal disease on the right side of his abdominal cavity and the fact that in 2014, he had recurrence at his anastomosis that surgical exploration with lysis of adhesions or bypass would likely be unsuccessful and that a loop ileostomy would likely be necessary. the patient tells me he really does not wish to consider an ileostomy at this time. The patient is still having liquidy stools. He states he feels no different now than he has felt for the last 6 weeks or so and is asking to be discharged from the hospital. he states he is able to tolerate liquids and does not feel he needs to have home IV fluids set up. I had spoken with both Dr. Haynes and Dr. Rodriguez about possible options. I am still waiting to hear back from the colorectal surgeons at [facility]. Given his overall options, I feel its reasonable for him to be discharged home today. I am planning to have him follow-up tomorrow at my office for flexible sigmoidoscopy/colonoscopy. based on the degree of tumor burden at the previous low anterior anastomosis that might clarify his options in the event of more of an obstruction. We would likely consider hospice discussions at that time.
--- NOTE | 2017-04-22 10:51 | PCM.DC ---
- Discharge Diagnoses Current Active Problems: Current Active and Chronic Problems Colon cancer metastasized to liver (Chronic) SBO (small bowel obstruction) (Acute) You will use the following diet at home:: Clear liquid, Other - Stay on clear liquids according to Dr. Hung for the procedure tomorrow. Discharge Activity: Return to Normal Activity Weight Bearing Status: Full weight bearing Call your doctor if you observe: Fever of 101 or Higher, Shortness of breath, Dizziness, Fainting spells, Chest pain, Increased palpitations (irregular heartbeat), Uncontrolled pain Instructions: Small Bowel Obstruction Allergies/Adverse Reactions: Allergies No Known Allergies Allergy (Verified 04/21/17 13:06) Medications to take at Discharge Omeprazole [Prilosec] 20 mg PO DAILY 08/06/15 Oxycodone HCl/Acetaminophen [Percocet 5-325] 1 tablet PO Q6H PRN PRN 08/06/15 Primary Care Physician: Care Physician,No Primary [Primary Care Provider] - Please follow up with your Primary Care Physician in: 2-3 weeks. Please Follow Up With: Miquel Davidson MD When: tomorrow.
[2017-04-22 11:28] VITALS: BP 142/89; PULSE 78; RESP 16; TEMP 37; O2SAT 97
--- NOTE | 2017-04-22 13:05 | PCM.DC.SUM ---
Discharge Date and Diagnosis - Problem List Patient Problems: Active and Suspected Problems SBO (small bowel obstruction) (Acute) Date of Admission: 04/20/17 Date of Discharge: 04/22/17 - Primary Discharge Diagnosis Active and Suspected Problems SBO (small bowel obstruction) (Acute) - Secondary Discharge Diagnosis Chronic Problems Colon cancer metastasized to liver (Chronic) Hospital Course and Treatment Imaging Results: 04/22/17 05:00 Abd Inc Decub and/or Erect [RAD] Urgent 04/22/17 06:55 CT Abd [Abdomen/Pel W ORAL Cont Only] [CT] Routine Clinical Impression(s) from Imaging Studies Abdomen/Pelvis CT 04/20/17 15:21 IMPRESSION: 1. Findings strongly suspicious for peritoneal/omental metastatic neoplasia in the right anterolateral abdomen. 2. Prior surgery at the level the rectum. Above this, there are several loops of inseparable small bowel and colon, with the appearance of poorly defined, irregular shaped retractile soft tissue between the segments, either scar or additional neoplasia. It is difficult to define one bowel segment from another at this level, but this appears to be the transition point of a mild to moderate partial small bowel obstruction. No free gas. 3. Double-J right ureteral stent in place. However, there is moderate right hydroureteronephrosis that is slightly worsened from 2013, when the ureteral stent was not present. 4. Left partial hepatectomy. The remnant liver has a heterogeneous texture. A small lesion/cyst in the posterior right lobe is stable, but other possible liver masses are not clearly defined. 5. Prior cholecystectomy. 6. 10 mm spiculated nodule suggested in the lingula of the left upper lobe on the first image. There is probable subsegmental atelectasis in the right lung base. 7. Coarse calcifications in the bilateral seminal vesicles. Vague 9 mm hyperdense nodule suggested in the right posterior margin of the prostate gland. If clinically warranted, this can be further characterized with MRI or transrectal ultrasound. 8. Bilateral fat-containing inguinal hernias are grossly unchanged. Electronically Signed: Omar Berkowitz MD at 16:52 EST , Service support , Abdomen CT 04/20/17 17:43 IMPRESSION: Small bowel obstruction. Transition point in the right lower quadrant. Peritoneal carcinomatosis. Right lower lung consolidation. Left lower lung nodule. Right hydronephrosis with stent in place. Electronically Signed: Phillip Hwang MD at 20:04 EST , Service support , Abdomen X-Ray 04/21/17 06:21 IMPRESSION: Residual dilated small bowel loops with air-fluid levels although contrast is seen throughout the colon. An air-fluid level is seen in the right upper quadrant beneath the right hemidiaphragm. This most likely represents the fundal portion of the stomach. On these CT scan, there is evidence of a rotation along the long axis of the stomach. Right basilar atelectasis with elevation of the right hemidiaphragm. Electronically Signed: Tristan Quezada MD at 9:02 EST Tel [phone], Service support , Abdomen X-Ray 04/22/17 05:00 IMPRESSION: Progressing obstructive bowel gas pattern. Electronically Signed: Andrew Gates MD at 6:23 EST Tel , Service support , Abdomen CT 04/22/17 06:55 IMPRESSION: 1. Continued incomplete small bowel obstruction with the transition zone in the right lower quadrant. 2. Continued ascites in the right paracolic gutter with nodularity of the adjacent mesentery and soft tissue mass suggesting metastatic disease. 3. Increasing dilatation of the left renal collecting system and ureter when compared to the prior study. There is no evidence of filling defect. Question adhesion. 4. No other major change from prior CT. Electronically Signed: Eugenio Ortiz DO at 11:22 EST Tel [phone], Service support , Dr. Hung, general surgery. Operations: None Procedures: None Summary of Care Provided: The patient is a 47 year old M with past medical history of stage IV metastatic colon cancer presented to the emergency room because of abdominal pain and he was found to have small bowel obstruction. Initial CT scan abdomen with contrast revealed small bowel obstruction with transition point at the right lower quadrant, also revealed peritoneal carcinomatosis and right hydronephrosis with stent in place. Patient was treated conservatively with IV fluids, kept on clear liquids, IV antiemetics and IV pain medications. His routine blood work was unremarkable and his electrolytes were normal. General surgery consulted and recommended to continue conservative treatment. Repeat x-ray abdomen revealed worsening or progressing small bowel obstruction. Repeat CT scan abdomen done today and revealed incomplete small bowel obstruction with transition zone in the right lower quadrant. Patient's symptoms improved and he has been having diarrhea. He denied nausea or vomiting. He has been having flatus. Patient requested to be discharged home. After discussion with general surgery, we decided to discharge patient home and the plan is to have him come back tomorrow for colonoscopy as outpatient. Patient discharged home in a stable medical condition, discharged on his previous home medication without any changes including Prilosec and Percocet, plan to follow-up with Dr. Pang tomorrow for colonoscopy as outpatient, follow-up with oncology as scheduled and follow-up with PCP in 2-3 weeks. Discharge Activity: Return to Normal Activity Weight Bearing Status: Full weight bearing Call your doctor if you observe: Fever of 101 or Higher, Shortness of breath, Dizziness, Fainting spells, Chest pain, Increased palpitations (irregular heartbeat), Uncontrolled pain Home Medications: Medications to take at Discharge Omeprazole [Prilosec] 20 mg PO DAILY 08/06/15 Oxycodone HCl/Acetaminophen [Percocet 5-325] 1 tablet PO Q6H PRN PRN 08/06/15 Primary Care Physician: Care Physician,No Primary [Primary Care Provider] - Please follow up with your Primary Care Physician in: 2-3 weeks. Please Follow Up With: Miquel Davidson MD When: tomorrow. Patient Instructions: Small Bowel Obstruction Patient Condition:: Stable Meaningful Use Info Meaningful Use Diagnoses (Choose all that apply): None applicable Code Visit Inpatient E&M: 16601 Disch Hosp
--- NOTE | 2017-04-22 13:09 | DS.PCM_ITS ---
Discharge Date and Diagnosis - Problem List Patient Problems: Active and Suspected Problems SBO (small bowel obstruction) (Acute) Date of Admission: 04/20/17 Date of Discharge: 04/22/17 - Primary Discharge Diagnosis Active and Suspected Problems SBO (small bowel obstruction) (Acute) - Secondary Discharge Diagnosis Chronic Problems Colon cancer metastasized to liver (Chronic) Hospital Course and Treatment Imaging Results: 04/22/17 05:00 Abd Inc Decub and/or Erect [RAD] Urgent 04/22/17 06:55 CT Abd [Abdomen/Pel W ORAL Cont Only] [CT] Routine Clinical Impression(s) from Imaging Studies Abdomen/Pelvis CT 04/20/17 15:21 IMPRESSION: 1. Findings strongly suspicious for peritoneal/omental metastatic neoplasia in the right anterolateral abdomen. 2. Prior surgery at the level the rectum. Above this, there are several loops of inseparable small bowel and colon, with the appearance of poorly defined, irregular shaped retractile soft tissue between the segments, either scar or additional neoplasia. It is difficult to define one bowel segment from another at this level, but this appears to be the transition point of a mild to moderate partial small bowel obstruction. No free gas. 3. Double-J right ureteral stent in place. However, there is moderate right hydroureteronephrosis that is slightly worsened from 2013, when the ureteral stent was not present. 4. Left partial hepatectomy. The remnant liver has a heterogeneous texture. A small lesion/cyst in the posterior right lobe is stable, but other possible liver masses are not clearly defined. 5. Prior cholecystectomy. 6. 10 mm spiculated nodule suggested in the lingula of the left upper lobe on the first image. There is probable subsegmental atelectasis in the right lung base. 7. Coarse calcifications in the bilateral seminal vesicles. Vague 9 mm hyperdense nodule suggested in the right posterior margin of the prostate gland. If clinically warranted, this can be further characterized with MRI or transrectal ultrasound. 8. Bilateral fat-containing inguinal hernias are grossly unchanged. Electronically Signed: Omar Berkowitz MD at 16:52 EST , Service support , Abdomen CT 04/20/17 17:43 IMPRESSION: Small bowel obstruction. Transition point in the right lower quadrant. Peritoneal carcinomatosis. Right lower lung consolidation. Left lower lung nodule. Right hydronephrosis with stent in place. Electronically Signed: Phillip Hwang MD at 20:04 EST , Service support , Abdomen X-Ray 04/21/17 06:21 IMPRESSION: Residual dilated small bowel loops with air-fluid levels although contrast is seen throughout the colon. An air-fluid level is seen in the right upper quadrant beneath the right hemidiaphragm. This most likely represents the fundal portion of the stomach. On these CT scan, there is evidence of a rotation along the long axis of the stomach. Right basilar atelectasis with elevation of the right hemidiaphragm. Electronically Signed: Tristan Quezada MD at 9:02 EST Tel [phone], Service support , Abdomen X-Ray 04/22/17 05:00 IMPRESSION: Progressing obstructive bowel gas pattern. Electronically Signed: Andrew Gates MD at 6:23 EST Tel , Service support , Abdomen CT 04/22/17 06:55 IMPRESSION: 1. Continued incomplete small bowel obstruction with the transition zone in the right lower quadrant. 2. Continued ascites in the right paracolic gutter with nodularity of the adjacent mesentery and soft tissue mass suggesting metastatic disease. 3. Increasing dilatation of the left renal collecting system and ureter when compared to the prior study. There is no evidence of filling defect. Question adhesion. 4. No other major change from prior CT. Electronically Signed: Eugenio Ortiz DO at 11:22 EST Tel [phone], Service support , Dr. Hung, general surgery. Operations: None Procedures: None Summary of Care Provided: The patient is a 47 year old M with past medical history of stage IV metastatic colon cancer presented to the emergency room because of abdominal pain and he was found to have small bowel obstruction. Initial CT scan abdomen with contrast revealed small bowel obstruction with transition point at the right lower quadrant, also revealed peritoneal carcinomatosis and right hydronephrosis with stent in place. Patient was treated conservatively with IV fluids, kept on clear liquids, IV antiemetics and IV pain medications. His routine blood work was unremarkable and his electrolytes were normal. General surgery consulted and recommended to continue conservative treatment. Repeat x- ray abdomen revealed worsening or progressing small bowel obstruction. Repeat CT scan abdomen done today and revealed incomplete small bowel obstruction with transition zone in the right lower quadrant. Patient's symptoms improved and he has been having diarrhea. He denied nausea or vomiting. He has been having flatus. Patient requested to be discharged home. After discussion with general surgery, we decided to discharge patient home and the plan is to have him come back tomorrow for colonoscopy as outpatient. Patient discharged home in a stable medical condition, discharged on his previous home medication without any changes including Prilosec and Percocet, plan to follow-up with Dr. Pang tomorrow for colonoscopy as outpatient, follow-up with oncology as scheduled and follow-up with PCP in 2-3 weeks. Discharge Activity: Return to Normal Activity Weight Bearing Status: Full weight bearing Call your doctor if you observe: Fever of 101 or Higher, Shortness of breath, Dizziness, Fainting spells, Chest pain, Increased palpitations (irregular heartbeat), Uncontrolled pain Home Medications: Medications to take at Discharge Omeprazole [Prilosec] 20 mg PO DAILY 08/06/15 Oxycodone HCl/Acetaminophen [Percocet 5-325] 1 tablet PO Q6H PRN PRN 08/06/15 Primary Care Physician: Care Physician,No Primary [Primary Care Provider] - Please follow up with your Primary Care Physician in: 2-3 weeks. Please Follow Up With: Miquel Davidson MD When: tomorrow. Patient Instructions: Small Bowel Obstruction Patient Condition:: Stable Meaningful Use Info Meaningful Use Diagnoses (Choose all that apply): None applicable Code Visit Inpatient E&M: 82770 Disch Hosp
--- NOTE | 2017-04-22 13:50 | NURSING ---
pt has an appt with dr spence at 1000 tomorrow. discharge isnt given to pt
== END 2017-04-22 15:18 | disposition home or self-care (01) | DRG 375 ==
LOC: ED 15:40 → MS3 21:12
PROVIDERS: Emergency Provider Emergency Medicine; Visit Provider Hospitalist
DX: C18.9 Malignant neoplasm of colon, unspecified (principal); C78.6 Secondary malignant neoplasm of retroperitoneum and peritoneum; C78.7 Secondary malignant neoplasm of liver and intrahepatic bile duct; N13.30 Unspecified hydronephrosis; Z79.899 Other long term (current) drug therapy; Z90.49 Acquired absence of other specified parts of digestive tract; Z87.891 Personal history of nicotine dependence
CPT/HCPCS: 36415; 36591; 74019; 74176; 80048; 80076; 83690; 85025; 97802; 99281; J2997; J7030; A4216; J2405; J3490

== ENCOUNTER 2017-05-19 18:11 | Inpatient (IN) | payer MEDICARE, SELFPAY ==
[2017-05-19 18:12] VITALS: BP 151/109; PULSE 138; RESP 16; TEMP 36.6; O2SAT 95; BMI 20.8
--- NOTE | 2017-05-19 19:49 | CT_ITS ---
STUDY: CT ABDOMEN AND PELVIS WITH CONTRAST REASON FOR EXAM: Male, 47 years old. Nausea and vomiting. RADIATION DOSAGE (If Supplied By Facility): CTDIvol = ( 14.93 ) mGy, DLP = ( 711.31 ) mGycm TECHNIQUE: Transaxial images were obtained from the dome of the diaphragm to the symphysis pubis without oral contrast. 100ML ml of Isovue 300 contrast was administered. Sagittal and coronal images were reconstructed. Individualized dose optimization techniques were used for this CT. COMPARISON: CT dated 04/20/2017 FINDINGS: There are new subcentimeter pulmonary nodules at the lung bases. There is a small right pleural effusion and trace left pleural effusion with overlying atelectasis. The visualized portions of the heart and pericardium are within normal limits. The patient is status post cholecystectomy. There are stable postsurgical changes from a partial hepatectomy in the left lobe of the liver. There is a 3.1 x 1.6 cm heterogeneous hypodense lesion in the right lobe of the liver which is suspicious for metastasis. There are additional subcentimeter hepatic hypodensities which are too small to characterize. The spleen, pancreas and adrenal glands are within normal limits. There is a moderate-sized hiatal hernia. Again noted is peritoneal carcinomatosis throughout the abdomen and pelvis. There is increased nodularity noted when compared with the prior exam. Again noted is a small bowel obstruction. When compared with the prior exam, there is increasing small bowel dilatation, consistent with worsening obstruction. There are postsurgical changes from prior sigmoid colon resection. There is a small amount of ascites noted throughout the abdomen and pelvis. There is loculated ascites noted in the right lower quadrant. There is no free air. There are stable severe bilateral hydroureteronephrosis. There is a right-sided ureteral stent in place. There is a delayed nephrogram noted in the left kidney. The aorta is normal in caliber. There are no destructive osseous lesions. CT/Abdomen/Pelvis WITH Contrast IMPRESSION: Small bowel obstruction with increasing bowel dilatation when compared with the prior exam. Worsening peritoneal carcinomatosis. 3.1 x 1.6 cm heterogeneous hypodense lesion in the right lower the liver which is suspicious for metastasis. Stable postsurgical changes in the liver. Stable severe bilateral hydroureteronephrosis with a right ureteral stent in place. Delayed nephrogram in the left kidney. Small amount of ascites in the abdomen and pelvis. Loculated ascites in the right lower quadrant. No free air. New subcentimeter pulmonary nodules at the lung bases. A dedicated chest CT is recommended. Small right pleural effusion and trace left pleural effusion with overlying atelectasis. Electronically Signed: Conrad Batista, at 22:37 EST Tel , Service support ,
[2017-05-19 20:13] VITALS: BP 151/107; PULSE 113; RESP 20; O2SAT 96
[2017-05-19] MEDS: 0.9% Normal Saline 1,000 ML 1000 ML IV (20:14)
[2017-05-19] MEDS: Ondansetron 4 MG/2 ML Vial IV (20:14)
[2017-05-19 20:38] LABS: Absolute Lymphocyte Count 1.29 X10^3/ul (0.83-4.51); Basophil# 0.03 X10^3/uL; Basophil% 0.2 % (0-1); Differential Indicated SCAN CRITERIA MET; Eosinophil# 0.07 X10^3/uL; Eosinophils% 0.6 % (0-5); Hematocrit 39.9 % (40-54); Hemoglobin 13.1 g/dl (13.0-16.5); Lymphocyte # 1.29 X10^3/ul (4.0); Lymphocyte % 10.7 % (19-41); Mean Corp Hgb Conc 32.8 g/gl (32-36); Mean Corpuscular Hgb 30.5 pg (27.0-32.0); Mean Corpuscular Volume 92.8 fL (80-94); Mean Platelet Vol. 10.1 fl (6.2-12.0); Monocyte# 1.59 X10^3/uL; Monocyte% 13.1 % (0-10); Neutrophil # 8.95 X10^3/uL (2.7-7.7); Neutrophil % 73.9 % (47-70); POSITIVE COUNT NO; POSITIVE DIFFERENTIAL YES; POSITIVE MORPHOLOGY NO; Platelet Count 369 K/mm3 (150-450); RBC Distribution Width CV 14.6 % (11.6-14.6); RBC Distribution Width SD 49.1 fl (35.1-43.9); White Blood Count 12.1 K/mm3 (4.4-11.0)
[2017-05-19 20:54] LABS: ALB/GLOB Ratio 0.5 RATIO (0.9-2.4); AST(SGOT) 42 U/L (15-37); Alanine Aminotransfer ALT/SGPT 16 U/L (16-61); Albumin, Serum 2.1 g/dL (3.2-5.0); Alkaline Phosphatase 77 U/L (45-117); Anion Gap 8 (5-15); BUN 25 mg/dL (7-18); BUN/Creat Ratio 23.4 RATIO (10-20); Calcium,Total 7.1 mg/dL (8.5-10.1); Chloride 94 mmol/L (98-107); Creatinine, Serum 1.07 mg/dL (0.70-1.30); EST Glomerular Filtration Rate 78 mL/min (>60); Est Glom Filt Rate - Afr Amer 95 mL/min (>60); Glucose 91 mg/dL (74-106); Lipase 290 U/L (73-393); Potassium 2.9 mmol/L (3.5-5.1); Protein, Total 6.1 g/dL (6.4-8.2); Sodium Level 135 mmol/L (136-145)
[2017-05-19 20:56] LABS: Differential Comment SCANNED
[2017-05-19 21:04] VITALS: BP 160/108; PULSE 96; RESP 23; O2SAT 97
[2017-05-19 22:22] VITALS: BP 142/100; PULSE 102; O2SAT 95
[2017-05-19 23:02] VITALS: BP 154/104; PULSE 99; RESP 18; TEMP 36.8; O2SAT 98
--- NOTE | 2017-05-19 23:05 | ED.VISSUMM ---
- ER Visit Summary Date of Service: 05/19/17 Chief Complaint: Weakness History of Present Illness: The patient is a 47 M patient is a 47-year-old gentleman who presents with generalized weakness and poor oral intake for about a month. He has a history of metastatic colon cancer to the lungs and liver. He was admitted here little over a month ago with a bowel obstruction which was managed supportively. He was discharged and went to [facility] with recurrent symptoms. He was admitted and at that time surgery felt it was more likely related to an ileus. He states that since discharge she has not been eating or drinking and has really had no bowel movements or stool but does have occasional flatus. He reports ongoing nausea and vomiting. No chest pain or shortness of breath. He spoke to Dr. Haynes today who was concerned that he would need admitted for nutrition and was sent to the ER. Physical Examination: Initial heart rate 138 vitals otherwise unremarkable Moist mucous membranes Heart regular rhythm tachycardia Lungs are clear Abdomen soft Patient has a palpable firm liver and his abdomen is distended Test Results: Laboratory studies notable for potassium 2.9. CT of the abdomen and pelvis shows small bowel obstruction with increasing bowel dilatation as well as heterogenous liver lesions consistent with metastasis severe bilateral hydroureteronephrosis and ascites. Emergency Department Course and Treatment: She was treated with IV fluids here. He has had no vomiting while here. His potassium was replaced IV. I spoke to Dr. Bravo who can see the patient in consultation as the patient has previously been seen by Dr. Hung. Patient was discussed with hospitalist and will be admitted. Treatment Plan: [] Disposition: Admit Impression: Small bowel obstruction Metastatic colon cancer This note was generated with [employer] dictation software. It may contain incorrect words, spelling, and punctuation that were not noted in review of the chart prior to signing ED Disposition - Plan for ED Patient: Chief Complaint: Weakness Referrals: Care Physician,No Primary [Primary Care Provider] -
[2017-05-19 23:46] VITALS: BMI 20.7; BMI 20.8
--- NOTE | 2017-05-19 23:46 | PCM.HP.STD ---
Problem List (1) Colon cancer metastasized to liver Status: Chronic (2) SBO (small bowel obstruction) Status: Acute (3) Ureteral obstruction, right Status: Acute History of Present Illness Date of Admission: 05/19/17 Chief Complaint: Weakness, poor oral intake. The patient is a 47 year old M with past medical history as mentioned above was referred by Dr. Haynes for weakness, poor oral intake and inability to eat or drink for at least one month. The patient's main complaint at this time is weakness. He mentioned that he has not been eating for the last month and he has been only drinking water. His other complaint is abdominal pain, vague generalized abdominal pain, dull aching pain, occasionally sharp pain, constant, 4-6 out of 10 in severity, not radiating, associated with nausea and vomiting, no aggravating or relieving factors and this has been going on for a few weeks. Chronic abdominal pain with nausea and vomiting due to metastatic colon cancer. Around 1 month ago, he was admitted for small bowel obstruction which was treated conservatively and was discharged home. He had a history of stage IV metastatic colon cancer with metastasis to liver and lung, status post partial colectomy, status post resection of liver metastasis and currently on chemotherapy. He has a history of right sided hydronephrosis secondary to ureteral obstruction status post stents. In the emergency room, patient was tachycardic, afebrile, blood pressure was stable and his pulse ox was normal on room air. His routine blood work was remarkable for mild leukocytosis, potassium of 2.9, sodium of 135 and BUN of 25. His calcium is 7.1, albumin is 2.1. His lipase was normal. CT scan abdomen and pelvis with contrast revealed small bowel obstruction and worsening peritoneal carcinomatosis, bilateral hydro-ureteronephrosis with right ureteral stent in place. He is being admitted for protein energy malnutrition, poor oral intake, dehydration, small bowel obstruction and electrolyte abnormalities including mild hyponatremia, hypokalemia and hypocalcemia. Past Medical History Past Medical History (Chronic Problems): Chronic Problems Colon cancer metastasized to liver (Chronic) Allergies No Known Allergies Allergy (Verified 05/19/17 18:14) Home Medications: Ambulatory Orders Medication Instructions Recorded Omeprazole [Prilosec] 20 mg PO DAILY 08/06/15 Oxycodone HCl/Acetaminophen 1 tablet PO Q6H PRN PRN 08/06/15 [Percocet 5-993] Surgical History: - - Partial colectomy. Partial hepatectomy. Ureteral stents. Psychiatric History: No pertinent psych hx Smoking Status: Never smoker - *Family History Maternal History Items: - - No history of colon cancer Paternal History Items: No pertinent history Review of Systems Constitutional: Reports: Anorexia, Weakness, Fatigue. Denies: Chills, Fever Eyes: Denies: Blurred vision, Double vision, Drainage, Redness HEENT: Denies: Difficulty Hearing, Ear Pain, Eye Pain, Nasal Congestion, Sore Throat Cardiovascular: Denies: Chest Pain, Chest Pressure, Chest Tightness, Palpitations, Paroxysmal Noc. Dyspnea, Syncope Respiratory: Denies: Cough, Pleuritic Pain, Shortness of Breath, Sputum production, Wheezing Gastrointestinal: Reports: Abdominal Pain, Constipation, Nausea, Vomiting. Denies: Diarrhea, Hematochezia, Melena Genitourinary: Denies: Dysuria, Frequency, Hematuria Musculoskeletal: Denies: Arm Pain, Back Pain, Foot Pain Skin: Denies: Dryness, Rash Neurological: Denies: Balance problems, Double vision, Change in Speech, Slurred speech, Confusion, Headaches, Incoordination, Numbness Psychiatric: Denies: Anxiety, Depression VTE Information - Inpt Only VTE Present on Admission: No VTE Mechan Device Prophylaxis: None VTE Pharm Prophylaxis ordered?: Yes - Physical Exam General: Alert, Oriented x3, Cooperative, No apparent distress HEENT: Atraumatic, PERRLA, EOMI Oral: Moist Mucosa, No Gingival or Mucosal Lesions/ Ulcerations Neck: Supple, No JVD, Negative Carotid Bruits, Trachea Midline, Thyroid Normal Size and Texture Lungs: Clear to auscultation, No rhonchi, No wheeze, No rales, Diminished Cardiovascular: Regular rate, Regular Rhythm, Normal S1, Normal S2, PMI Normal Abdomen: Soft, Non Tender, Hypoactive Bowel Sounds, Distended Extremities: No clubbing, No cyanosis, Edema - Trace edema. Skin: No rashes, No breakdown Lymphatic: No Cervical, Supraclavicular, or Inguinal Adenopathy Neurological: Cranial nerves II-XII grossly intact, Motor Exam 5/5 strength throughout Psych/Mental Status: Normal Affect, Appropriate, Alert and oriented to time, place, person, mood and affect Vital Signs Temp Pulse Resp BP Pulse Ox 98.3 F 99 18 154/104 H 98 05/19/17 23:02 05/19/17 23:02 05/19/17 23:02 05/19/17 23:02 05/19/17 23:02 Laboratory Tests 05/19/17 05/19/17 Range/Units 20:10 20:10 WBC 12.1 H (4.4-11.0) K/mm3 RBC 4.30 L (4.6-6.2) M/mm3 Hgb 13.1 (13.0-16.5) g/dl Hct 39.9 L (40-54) % MCV 92.8 (80-94) fL MCH 30.5 (27.0-32.0) pg MCHC 32.8 (32-36) g/gl RDW 14.6 (11.6-14.6) % RDW Differential 49.1 H (35.1-43.9) fl Plt Count 369 (150-450) K/mm3 MPV 10.1 (6.2-12.0) fl Immature Gran % (Auto) 1.500 H (0.0-0.9) % Neut % (Auto) 73.9 H (47-70) % Lymph % (Auto) 10.7 L (19-41) % [place] % (Auto) 13.1 H (0-10) % Eos % (Auto) 0.6 (0-5) % Baso % (Auto) 0.2 (0-1) % Absolute Neuts (auto) 9.0 H (2.0-7.7) X10^3/uL Absolute Lymphs (auto) 1.29 (0.83-4.51) X10^3/ul Total Counted Not Reportable Differential Comment SCANNED Sodium 135 L (136-145) mmol/L Potassium 2.9 L (3.5-5.1) mmol/L Chloride 94 L (98-107) mmol/L Carbon Dioxide 33.0 H (21.0-32.0) mmol/L Anion Gap 8 (5-15) BUN 25 H (7-18) mg/dL Creatinine 1.07 (0.70-1.30) mg/dL Estim Creat Clear Calc 78.70 ml/min Est GFR (MDRD) Af Amer 95 (>60) mL/min Est GFR (MDRD) Non-Af 78 (>60) mL/min BUN/Creatinine Ratio 23.4 H (10-20) RATIO Glucose 91 (74-106) mg/dL Calcium 7.1 L (8.5-10.1) mg/dL Total Bilirubin 0.80 (0.20-1.00) mg/dL AST 42 H (15-37) U/L ALT 16 (16-61) U/L Alkaline Phosphatase 77 (45-117) U/L Total Protein 6.1 L (6.4-8.2) g/dL Albumin 2.1 L (3.2-5.0) g/dL Globulin 4.0 (2.2-4.2) g/dL Albumin/Globulin Ratio 0.5 L (0.9-2.4) RATIO Lipase 290 (73-393) U/L Clinical Impression(s) from Imaging Studies Abdomen/Pelvis CT 05/19/17 19:49 IMPRESSION: Small bowel obstruction with increasing bowel dilatation when compared with the prior exam. Worsening peritoneal carcinomatosis. 3.1 x 1.6 cm heterogeneous hypodense lesion in the right lower the liver which is suspicious for metastasis. Stable postsurgical changes in the liver. Stable severe bilateral hydroureteronephrosis with a right ureteral stent in place. Delayed nephrogram in the left kidney. Small amount of ascites in the abdomen and pelvis. Loculated ascites in the right lower quadrant. No free air. New subcentimeter pulmonary nodules at the lung bases. A dedicated chest CT is recommended. Small right pleural effusion and trace left pleural effusion with overlying atelectasis. Electronically Signed: Conrad Batista, at 22:37 EST Tel , Service support , Assessment/Plan This is a 47 years old male patient was referred to the emergency department by Dr. Haynes for generalized weakness, poor oral intake that has been going on for more than a month, found to have dehydration, hypokalemia, hypoglycemia in addition to small bowel obstruction on CT scan abdomen. #1 small bowel obstruction: In context of recurrent small bowel obstruction secondary to metastatic colon cancer with peritoneal carcinomatosis. Patient does have chronic abdominal pain with nausea and vomiting. He mentioned that his last bowel movement was more than 1 month ago, has been passing flatus. But he is not eating, he just drinks water. CT scan abdomen and pelvis reviewed. Plan: Admit to MedSurg floor, keep on clear liquids, IV fluids, replace electrolytes as appropriate including potassium and calcium, check serum magnesium, general surgery consult. #2 protein energy malnutrition/poor oral intake: Patient at least has moderate protein energy malnutrition. He has not been eating for the last month, only drinking water. This is because of chronic abdominal pain with nausea and vomiting. Plan: Prealbumin, nutrition consult. Patient may need TPN and we can discuss this with Dr. Haynes. #3 hypokalemia/hypocalcemia: Potassium is 2.9. Likely because of poor oral intake and GI loss of electrolytes. Serum calcium is 7.1 mg/dL but his albumin is 2.1 g/dL. His corrected calcium for albumin is 8.6 mg/dL. Plan: Replace potassium with IV potassium chloride, repeat BMP tomorrow morning, check serum magnesium. #4 generalized weakness/physical debility/functional decline: Secondary to poor oral intake in addition to cancer and chemotherapy. Plan for PT OT evaluation and treatment. #5 stage IV metastatic colon cancer: With metastasis to liver and lung, status post partial colectomy, status post resection of liver metastasis currently on chemotherapy. He follows up with Dr. Haynes. Dr. Haynes will be consulted and we may need to consider discussion about hospice and palliative care with the patient versus going with TPN for nutrition support. #6 right ureteral obstruction/right-sided hydronephrosis: Status post right ureteral stent. CT scan abdomen revealed stable hydroureteronephrosis, kidney function is stable. #7 DVT prophylaxis: Subcu heparin. This note was generated with [employer] dictation software. It may contain incorrect words, spelling, and punctuation that were not noted in checking the note before signing. Code Visit Inpatient E&M: 39619 Init Hosp L3
--- NOTE | 2017-05-19 23:50 | HP.PCM_ITS ---
Problem List (1) Colon cancer metastasized to liver Status: Chronic (2) SBO (small bowel obstruction) Status: Acute (3) Ureteral obstruction, right Status: Acute History of Present Illness Date of Admission: 05/19/17 Chief Complaint: Weakness, poor oral intake. The patient is a 47 year old M with past medical history as mentioned above was referred by Dr. Haynes for weakness, poor oral intake and inability to eat or drink for at least one month. The patient's main complaint at this time is weakness. He mentioned that he has not been eating for the last month and he has been only drinking water. His other complaint is abdominal pain, vague generalized abdominal pain, dull aching pain, occasionally sharp pain, constant , 4-6 out of 10 in severity, not radiating, associated with nausea and vomiting , no aggravating or relieving factors and this has been going on for a few weeks. Chronic abdominal pain with nausea and vomiting due to metastatic colon cancer. Around 1 month ago, he was admitted for small bowel obstruction which was treated conservatively and was discharged home. He had a history of stage IV metastatic colon cancer with metastasis to liver and lung, status post partial colectomy, status post resection of liver metastasis and currently on chemotherapy. He has a history of right sided hydronephrosis secondary to ureteral obstruction status post stents. In the emergency room, patient was tachycardic, afebrile, blood pressure was stable and his pulse ox was normal on room air. His routine blood work was remarkable for mild leukocytosis, potassium of 2.9, sodium of 135 and BUN of 25. His calcium is 7.1, albumin is 2.1. His lipase was normal. CT scan abdomen and pelvis with contrast revealed small bowel obstruction and worsening peritoneal carcinomatosis, bilateral hydro -ureteronephrosis with right ureteral stent in place. He is being admitted for protein energy malnutrition, poor oral intake, dehydration, small bowel obstruction and electrolyte abnormalities including mild hyponatremia, hypokalemia and hypocalcemia. Past Medical History Past Medical History (Chronic Problems): Chronic Problems Colon cancer metastasized to liver (Chronic) Allergies No Known Allergies Allergy (Verified 05/19/17 18:14) Home Medications: Ambulatory Orders Medication Instructions Recorded Omeprazole [Prilosec] 20 mg PO DAILY 08/06/15 Oxycodone HCl/Acetaminophen 1 tablet PO Q6H PRN PRN 08/06/15 [Percocet 5-830] Surgical History: - - Partial colectomy. Partial hepatectomy. Ureteral stents. Psychiatric History: No pertinent psych hx Smoking Status: Never smoker - *Family History Maternal History Items: - - No history of colon cancer Paternal History Items: No pertinent history Review of Systems Constitutional: Reports: Anorexia, Weakness, Fatigue. Denies: Chills, Fever Eyes: Denies: Blurred vision, Double vision, Drainage, Redness HEENT: Denies: Difficulty Hearing, Ear Pain, Eye Pain, Nasal Congestion, Sore Throat Cardiovascular: Denies: Chest Pain, Chest Pressure, Chest Tightness, Palpitations, Paroxysmal Noc. Dyspnea, Syncope Respiratory: Denies: Cough, Pleuritic Pain, Shortness of Breath, Sputum production, Wheezing Gastrointestinal: Reports: Abdominal Pain, Constipation, Nausea, Vomiting. Denies: Diarrhea, Hematochezia, Melena Genitourinary: Denies: Dysuria, Frequency, Hematuria Musculoskeletal: Denies: Arm Pain, Back Pain, Foot Pain Skin: Denies: Dryness, Rash Neurological: Denies: Balance problems, Double vision, Change in Speech, Slurred speech, Confusion, Headaches, Incoordination, Numbness Psychiatric: Denies: Anxiety, Depression VTE Information - Inpt Only VTE Present on Admission: No VTE Mechan Device Prophylaxis: None VTE Pharm Prophylaxis ordered?: Yes - Physical Exam General: Alert, Oriented x3, Cooperative, No apparent distress HEENT: Atraumatic, PERRLA, EOMI Oral: Moist Mucosa, No Gingival or Mucosal Lesions/ Ulcerations Neck: Supple, No JVD, Negative Carotid Bruits, Trachea Midline, Thyroid Normal Size and Texture Lungs: Clear to auscultation, No rhonchi, No wheeze, No rales, Diminished Cardiovascular: Regular rate, Regular Rhythm, Normal S1, Normal S2, PMI Normal Abdomen: Soft, Non Tender, Hypoactive Bowel Sounds, Distended Extremities: No clubbing, No cyanosis, Edema - Trace edema. Skin: No rashes, No breakdown Lymphatic: No Cervical, Supraclavicular, or Inguinal Adenopathy Neurological: Cranial nerves II-XII grossly intact, Motor Exam 5/5 strength throughout Psych/Mental Status: Normal Affect, Appropriate, Alert and oriented to time, place, person, mood and affect Vital Signs Temp Pulse Resp BP Pulse Ox 98.3 F 99 18 154/104 H 98 05/19/17 23:02 05/19/17 23:02 05/19/17 23:02 05/19/17 23:02 05/19/17 23:02 Laboratory Tests 3 05/19/17 05/19/17 Range/Units 20:10 20:10 WBC 12.1 H (4.4-11.0) K/mm3 RBC 4.30 L (4.6-6.2) M/mm3 Hgb 13.1 (13.0-16.5) g/dl Hct 39.9 L (40-54) % MCV 92.8 (80-94) fL MCH 30.5 (27.0-32.0) pg MCHC 32.8 (32-36) g/gl RDW 14.6 (11.6-14.6) % RDW Differential 49.1 H (35.1-43.9) fl Plt Count 369 (150-450) K/mm3 MPV 10.1 (6.2-12.0) fl Immature Gran % (Auto) 1.500 H (0.0-0.9) % Neut % (Auto) 73.9 H (47-70) % Lymph % (Auto) 10.7 L (19-41) % [place] % (Auto) 13.1 H (0-10) % Eos % (Auto) 0.6 (0-5) % Baso % (Auto) 0.2 (0-1) % Absolute Neuts (auto) 9.0 H (2.0-7.7) X10^3/uL Absolute Lymphs (auto) 1.29 (0.83-4.51) X10^3/ul Total Counted Not Reportable Differential Comment SCANNED Sodium 135 L (136-145) mmol/L Potassium 2.9 L (3.5-5.1) mmol/L Chloride 94 L (98-107) mmol/L Carbon Dioxide 33.0 H (21.0-32.0) mmol/L Anion Gap 8 (5-15) BUN 25 H (7-18) mg/dL Creatinine 1.07 (0.70-1.30) mg/dL Estim Creat Clear Calc 78.70 ml/min Est GFR (MDRD) Af Amer 95 (>60) mL/min Est GFR (MDRD) Non-Af 78 (>60) mL/min BUN/Creatinine Ratio 23.4 H (10-20) RATIO Glucose 91 (74-106) mg/dL Calcium 7.1 L (8.5-10.1) mg/dL Total Bilirubin 0.80 (0.20-1.00) mg/dL AST 42 H (15-37) U/L ALT 16 (16-61) U/L Alkaline Phosphatase 77 (45-117) U/L Total Protein 6.1 L (6.4-8.2) g/dL Albumin 2.1 L (3.2-5.0) g/dL Globulin 4.0 (2.2-4.2) g/dL Albumin/Globulin Ratio 0.5 L (0.9-2.4) RATIO Lipase 290 (73-393) U/L Clinical Impression(s) from Imaging Studies Abdomen/Pelvis CT 05/19/17 19:49 IMPRESSION: Small bowel obstruction with increasing bowel dilatation when compared with the prior exam. Worsening peritoneal carcinomatosis. 3.1 x 1.6 cm heterogeneous hypodense lesion in the right lower the liver which is suspicious for metastasis. Stable postsurgical changes in the liver. Stable severe bilateral hydroureteronephrosis with a right ureteral stent in place. Delayed nephrogram in the left kidney. Small amount of ascites in the abdomen and pelvis. Loculated ascites in the right lower quadrant. No free air. New subcentimeter pulmonary nodules at the lung bases. A dedicated chest CT is recommended. Small right pleural effusion and trace left pleural effusion with overlying atelectasis. Electronically Signed: Conrad Batista, at 22:37 EST Tel , Service support , Assessment/Plan This is a 47 years old male patient was referred to the emergency department by Dr. Haynes for generalized weakness, poor oral intake that has been going on for more than a month, found to have dehydration, hypokalemia, hypoglycemia in addition to small bowel obstruction on CT scan abdomen. #1 small bowel obstruction: In context of recurrent small bowel obstruction secondary to metastatic colon cancer with peritoneal carcinomatosis. Patient does have chronic abdominal pain with nausea and vomiting. He mentioned that his last bowel movement was more than 1 month ago, has been passing flatus. But he is not eating, he just drinks water. CT scan abdomen and pelvis reviewed. Plan: Admit to MedSurg floor, keep on clear liquids, IV fluids, replace electrolytes as appropriate including potassium and calcium, check serum magnesium, general surgery consult. #2 protein energy malnutrition/poor oral intake: Patient at least has moderate protein energy malnutrition. He has not been eating for the last month, only drinking water. This is because of chronic abdominal pain with nausea and vomiting. Plan: Prealbumin, nutrition consult. Patient may need TPN and we can discuss this with Dr. Haynes. #3 hypokalemia/hypocalcemia: Potassium is 2.9. Likely because of poor oral intake and GI loss of electrolytes. Serum calcium is 7.1 mg/dL but his albumin is 2.1 g/dL. His corrected calcium for albumin is 8.6 mg/dL. Plan: Replace potassium with IV potassium chloride, repeat BMP tomorrow morning, check serum magnesium. #4 generalized weakness/physical debility/functional decline: Secondary to poor oral intake in addition to cancer and chemotherapy. Plan for PT OT evaluation and treatment. #5 stage IV metastatic colon cancer: With metastasis to liver and lung, status post partial colectomy, status post resection of liver metastasis currently on chemotherapy. He follows up with Dr. Haynes. Dr. Haynes will be consulted and we may need to consider discussion about hospice and palliative care with the patient versus going with TPN for nutrition support. #6 right ureteral obstruction/right-sided hydronephrosis: Status post right ureteral stent. CT scan abdomen revealed stable hydroureteronephrosis, kidney function is stable. #7 DVT prophylaxis: Subcu heparin. This note was generated with [employer] dictation software. It may contain incorrect words, spelling, and punctuation that were not noted in checking the note before signing. Code Visit Inpatient E&M: 88829 Init Hosp L3
[2017-05-20] VITALS (16 sets, daily range): BP systolic 137–147; BP diastolic 88–105; PULSE 62–102; RESP 18; TEMP 36.3–37; O2SAT 95–97
[2017-05-20] MEDS: Lactated Ringers 1,000 ML 100 ML IV ×2 (00:23→10:32)
[2017-05-20] MEDS: 0.9% NaCl Peripheral Flush Adult/Peds IV ×4 (00:34→23:02)
[2017-05-20 00:36] LABS: Magnesium 1.8 mg/dL (1.6-2.6); Prealbumin 7.8 mg/dL (20.0-40.0)
[2017-05-20 06:10] LABS: Absolute Lymphocyte Count 1.03 X10^3/ul (0.83-4.51); Absolute Neutrophil Count 7.2 X10^3/uL (2.0-7.7); Basophil# 0.02 X10^3/uL; Basophil% 0.2 % (0-1); Eosinophil# 0.08 X10^3/uL; Eosinophils% 0.8 % (0-5); Hematocrit 37.2 % (40-54); Lymphocyte # 1.03 X10^3/ul (4.0); Lymphocyte % 10.6 % (19-41); Mean Corp Hgb Conc 32.3 g/gl (32-36); Mean Corpuscular Hgb 30.2 pg (27.0-32.0); Mean Corpuscular Volume 93.5 fL (80-94); Mean Platelet Vol. 9.4 fl (6.2-12.0); Monocyte# 1.34 X10^3/uL; Monocyte% 13.7 % (0-10); Neutrophil # 7.17 X10^3/uL (2.7-7.7); Neutrophil % 73.5 % (47-70); Platelet Count 315 K/mm3 (150-450); RBC Distribution Width CV 14.5 % (11.6-14.6); RBC Distribution Width SD 49.3 fl (35.1-43.9); Red Blood Count 3.98 M/mm3 (4.6-6.2); White Blood Count 9.8 K/mm3 (4.4-11.0)
[2017-05-20 06:23] LABS: Anion Gap 12 (5-15); BUN 23 mg/dL (7-18); Calcium,Total 7.9 mg/dL (8.5-10.1); Chloride 90 mmol/L (98-107); Creatinine, Serum 1.21 mg/dL (0.70-1.30); EST Glomerular Filtration Rate 68 mL/min (>60); Est Glom Filt Rate - Afr Amer 82 mL/min (>60); Estimated Creatinine Clearance 69.27 ml/min; Glucose 89 mg/dL (74-106); Potassium 2.8 mmol/L (3.5-5.1); Sodium Level 133 mmol/L (136-145)
[2017-05-20 06:25] LABS: POSITIVE COUNT NO; POSITIVE DIFFERENTIAL NO; POSITIVE MORPHOLOGY NO
--- NOTE | 2017-05-20 10:06 | CASEMGMT ---
RN CM Assessment completed, see link. DC PLAN: undetermined. Dr. Haynes to see pt today. Pt was independent @ home prior to admission. Possible need for TPN, may need on dc. Will await Dr. Haynes consult and continue to follow for dc planning. Lincoln BELLN RN ACM
--- NOTE | 2017-05-20 12:15 | PCM.CONS.B ---
Problem List (1) SBO (small bowel obstruction) Status: Acute (2) Colon cancer metastasized to liver Status: Chronic - Consult Date of Consult: 05/20/17 - Reason for Consult HPI: The patient is a 47 yo male with PMH significant WPW~(s/p ablation at [facility]), right sided ureteral stent~(extrinsic compression from CRC metastasis; changed q 3 months). ? Developed near complete obstipation associated with intermittent rectal bleeding in late 2010/early 2011. Was referred to a wood casket maker who performed a colonoscopy on 05/29/2011. At approximate 20 cm into the left colon, there was an obstructing mass. The scope was not able to be passed. Biopsies were obtained. The mass was tattooed and biopsy demonstrated invasive well to moderately differentiated adenocarcinoma. ? The patient was referred to the [facility] On~06/12/2011, he underwent a laparoscopic converted to open low anterior resection. The operative note indicates there were no palpable lesions on the liver. The surgical pathology demonstrated adenocarcinoma extending to the serosal surface. There was metastatic involvement of 2 of 15 lymph nodes. Pericolonic tumor deposits were observed. There was a biopsy of~right pelvic implant which demonstrated adenocarcinoma. The synoptic reports that the tumor size was 3.1 cm. It was an adenocarcinoma moderately differentiated. Tumor was present at the serosal surface. Lymphovascular invasion was noted to be present and extensive. Perineural invasion was noted to be present and extensive. There were no histologic features suggestive of microsatellite instability. Margins were negative. Radial margin was within 1 mm. 15 lymph nodes were removed, 2 were positive with extranodal extension present. Tumor deposits were noted but the exact number could not be rendered due to the extensive lymphovascular and perineural invasion. Mismatch repair protein expression was present for all 4 proteins tested. ? Radiographic studies are not available this time but the patient did undergo partial hepatectomy on 08/12/2011. The surgical pathology demonstrated there was cholelithiasis and gallbladder and the left lobe partial lobectomy demonstrated moderately differentiated adenocarcinoma consistent with metastatic colon cancer. Margins were free of disease. It appears there was only one liver metastasis per the pathology report. ? The patient was advised to receive chemotherapy but this was delayed by him until 2012. ? He underwent~right ureteral stent placement~and then received 7 cycles FOLFIRI with bevacizumab~between 05/2012 and 12/2012~at [facility]. He said the chemotherapy made him very ill and he had prolonged nausea and vomiting associated with loss of appetite, extensive diarrhea and fatigue. This caused delays in cycles. ? He underwent a~colonoscopy in September 2014. He was observed to have biopsy-proven recurrence at the anastomotic site. CEA is elevated to 78.4 ng/mL. He recalls CEA 02/2014 was 9 ng/mL. ? Previous therapy: 1) FOLFIRI with laurent x7 cycles. 2) FOLFOX x2 then with bevacizumab x3 cycles until 01/21/2015. 3) FOLFIRI with bevacizumab x5 cycles. 4) FOLFIRI x8 cycles. 5) FOLFIRI with panitumumab. 6) Lonsurf. ? Patient completed 1 cycle of Lonsurf. He was admitted to [facility] for small bowel obstruction. CT scan evidence showed progression of disease with possible several sites of obstruction. He declined NG tube placement. He was managed with IV fluids and nothing by mouth status. Was decided to discharge the patient with outpatient follow up at [facility] for opinion on potential surgical debulking of disease. ? Patient developed hematemesis on 04/17/2016 and went to the emergency room at [facility]. He was admitted there through until 05/11. Complete details of hospital course or not clearly known but I did speak with one of the residents on his case and he was managed with conservative measures. CT scan was not repeated. His condition did not improve and I had recommended hospice care. signed out AMA on 05/11. I saw him in the office last Wednesday. We discussed hospice care but he is mentally resistant to that idea and once to have everything done possible. I explained that I think the only course of action with respect to that would be to start TPN and obtain surgical opinion. Unfortunately, insurance would not cover outpatient initiation of TPN. He has an appointment at [facility] next week with colorectal surgery. His mom contacted the office yesterday to say he was getting weaker and weaker and I therefore advised admission to the hospital to begin TPN. he was started on fluids overnight has received electrolyte replacement. He says he feeling a little bit better this morning. However he did have another episode of vomiting just before I got here. He has visceral crescendo/decrescendo pain off and on. Passing flatus. CT scan of the abdomen and pelvis was done last evening in the ER. Allergies No Known Allergies Allergy (Verified 05/19/17 18:14) Current Medications Heparin Sodium (Beef Lung) (Heparin 500 Unit/5 Ml (100/Ml)) 500 unit IV UD PRN PRN Reason: HEPARIN FLUSH Heparin Sodium (Porcine) (Heparin Na) 5,000 unit SC Q8 [facility] Last Admin: 05/20/17 05:45 Dose: Not Given Famotidine (Pepcid 20mg) 20 mg in 50 mls @ 150 mls/hr IV Q12 [facility] Last Admin: 05/20/17 10:33 Dose: 150 mls/hr Potassium Chloride/Sodium Chloride () 1,000 mls @ 100 mls/hr IV .Q10H [facility] Last Admin: 05/20/17 12:49 Dose: 100 mls/hr Morphine Sulfate (Morphine) 1 - 2 mg IV Q3H PRN PRN PRN Reason: SEVERE PAIN (6-10/10) Last Admin: 05/20/17 05:44 Dose: 2 mg Nutritional Formula (Lactose Free) (Ensure Clear) 120 ml PO 4X/DAY [facility] Last Admin: 05/20/17 10:32 Dose: Not Given Ondansetron HCl (Zofran) 4 mg IV Q6H PRN PRN PRN Reason: NAUSEA/VOMITING Last Admin: 05/20/17 12:50 Dose: 4 mg Promethazine HCl (Phenergan (Ll)) 6.25 mg IV Q6H PRN PRN PRN Reason: NAUSEA/VOMITING Last Admin: 05/20/17 05:44 Dose: 6.25 mg Sodium Chloride () 5 - 30 ml IV UD PRN PRN Reason: SALINE FLUSH Last Admin: 05/20/17 12:49 Dose: 20 ml Sodium Chloride () 10 ml IV UD PRN PRN Reason: VAD FLUSH ROS: no recent fever or shaking chill or night sweats. Stable symptoms of peripheral neuropathy. He hasn't had any significant cough or sputum production. No shortness of breath at rest. No chest pain/pressure or tightness. He has developed lower extremity edema. No rash or jaundice. PHYSICAL EXAM: Vitals: Vital Signs Temp 98.4 F 05/20/17 12:53 Pulse 102 H 05/20/17 12:53 Resp 18 05/20/17 12:53 BP 144/101 H 05/20/17 12:54 Pulse Ox 95 05/20/17 12:53 Intake & Output 05/18/17 05/19/17 05/20/17 23:59 23:59 23:59 Intake Total 1508 / 1508 Output Total 200 / 200 Balance 1308 / 1308 Weight: 65.6 kg 65.9 kg Intake: Oral 200 / 200 IV fluid/meds 1308 / 1308 Output: Urine 200 / 200 Other: Number of Voids 2 Borderline cachectic-appearing and in no acute distress. EYES: Sclerae are anicteric bilaterally. NECK: Supple. LYMPHATIC: There is no palpable cervical, supraclavicular adenopathy. RESPIRATORY: Inspiratory breath sounds are of diminished. CARDIOVASCULAR: Rhythm is regular. Normal intensity S1/S2. ABDOMEN: The abdomen is mildly distended. Bowel sounds are appreciated. No obvious fluid wave. Diffusely tender throughout. Extremities: Bilateral edema. SKIN: No jaundice or rash. MUSCULOSKELETAL: mild generalizedmuscle wasting. ASSESSMENT/PLAN: 1) Chemotherapy refractory metastatic colorectal cancer with diffuse carcinomatosis complicated by small bowel obstruction. -I again had a very open and mamadou discussion with the patient after reviewing his CT scan images personally compared with those done the first week of April. There has been significant progression of disease with new pulmonary metastases. There is obvious findings of small bowel obstruction. I recommend hospice care. I explained to the patient that a debulking surgery is not indicated. He also understands that if he wants a surgical opinion regarding relief of the obstruction then he will need to be transferred to [facility]. Plan: -Consult hospice and palliative care.
--- NOTE | 2017-05-20 12:21 | NS ---
TPN recommendations: 5% AA/20% Dextrose - 2 L per day at 84mL/hour w/ 250mL 20% lipid solution every other day (4x per week) to provide a daily average of 2045 calories/100 g AA.
[2017-05-20] MEDS: Ondansetron 4 MG/2 ML Vial IV (12:50)
--- NOTE | 2017-05-20 12:52 | NURSING ---
in to check on pt as hr in 140's pt up to bathroom, emesis green bile in color in toilet. pt denies dizziness. pt back to bed. HR to low 100's. meds obtained. dr. zuleta in to talk with pt. vs checked.
--- NOTE | 2017-05-20 15:25 | PCM.PN.HOSP ---
Subjective: CC: generalized weakness, poor oral intake He is a 47 years old male patient was with history of metastatic colon cancer with peritoneal carcinomatosis who was referred to the ED due to generalized weakness, poor oral intake that has been going on for more than a month, found to have dehydration, electrolyte abnormalities and small bowel obstruction on CT scan abdomen. Vitals/I&O's: Vital Signs Temp Pulse Resp BP Pulse Ox 98.2 F 97 18 142/95 H 95 05/20/17 14:32 05/20/17 14:32 05/20/17 14:32 05/20/17 14:32 05/20/17 14:32 Oxygen Delivery Method Room Air Weight: 65.9 kg Body Mass Index (BMI) 20.7 Intake and Output for Last 24 Hours 05/18/17 05/19/17 05/20/17 23:59 23:59 23:59 Intake Total 1508 / 1508 Output Total 200 / 200 Balance 1308 / 1308 General: Alert, Oriented x3 HEENT: Atraumatic Oral: Moist Mucosa Neck: Supple, No JVD Lungs: Clear to auscultation Cardiovascular: Regular rate, Normal S1, Normal S2 Abdomen: Bowel Sounds Present, Non Tender, Distended Laboratory Results 05/20/17 05:50: WBC 9.8, RBC 3.98 L, Hgb 12.0 L, Hct 37.2 L, MCV 93.5, MCH 30.2, MCHC 32.3, RDW 14.5, RDW Differential 49.3 H, Plt Count 315, MPV 9.4, Immature Gran % (Auto) 1.200 H, Neut % (Auto) 73.5 H, Lymph % (Auto) 10.6 L, [place] % (Auto) 13.7 H, Eos % (Auto) 0.8, Baso % (Auto) 0.2, Absolute Neuts (auto) 7.2, Absolute Lymphs (auto) 1.03, Total Counted Not Reportable 05/20/17 05:50: Sodium 133 L, Potassium 2.8 L, Chloride 90 L, Carbon Dioxide 31.0, Anion Gap 12, BUN 23 H, Creatinine 1.21, Estim Creat Clear Calc 69.27, Est GFR (MDRD) Af Amer 82, Est GFR (MDRD) Non-Af 68, BUN/Creatinine Ratio 19.0, Glucose 89, Calcium 7.9 L Current Medications Heparin Sodium (Beef Lung) (Heparin 500 Unit/5 Ml (100/Ml)) 500 unit IV UD PRN PRN Reason: HEPARIN FLUSH Heparin Sodium (Porcine) (Heparin Na) 5,000 unit SC Q8 [facility] Last Admin: 05/20/17 14:34 Dose: Not Given Famotidine (Pepcid 20mg) 20 mg in 50 mls @ 150 mls/hr IV Q12 [facility] Last Admin: 05/20/17 10:33 Dose: 150 mls/hr Potassium Chloride/Sodium Chloride () 1,000 mls @ 100 mls/hr IV .Q10H [facility] Last Admin: 05/20/17 12:49 Dose: 100 mls/hr Morphine Sulfate (Morphine) 1 - 2 mg IV Q3H PRN PRN PRN Reason: SEVERE PAIN (6-10/10) Last Admin: 05/20/17 05:44 Dose: 2 mg Nutritional Formula (Lactose Free) (Ensure Clear) 120 ml PO 4X/DAY [facility] Last Admin: 05/20/17 14:33 Dose: 120 ml Ondansetron HCl (Zofran) 4 mg IV Q6H PRN PRN PRN Reason: NAUSEA/VOMITING Last Admin: 05/20/17 12:50 Dose: 4 mg Promethazine HCl (Phenergan (Ll)) 6.25 mg IV Q6H PRN PRN PRN Reason: NAUSEA/VOMITING Last Admin: 05/20/17 05:44 Dose: 6.25 mg Sodium Chloride () 5 - 30 ml IV UD PRN PRN Reason: SALINE FLUSH Last Admin: 05/20/17 12:49 Dose: 20 ml Sodium Chloride () 10 ml IV UD PRN PRN Reason: VAD FLUSH Assessment/Plan 1 Recurrent small bowel obstruction secondary to metastatic colon cancer with peritoneal carcinomatosis. Patient has poor oral intake given IV fluids and electrolyte replacement. 2 metastatic colon cancer with peritoneal carcinomatosis; palliative/hospice consult for comfort focused care. 3 electrolyte abnormality; this will be corrected. 4 generalized weakness/physical debility/functional decline due to #2, supportive management. Code Visit Inpatient E&M: 22377 Subs Hosp L2
--- NOTE | 2017-05-20 15:32 | PN_ITS ---
Subjective: CC: generalized weakness, poor oral intake He is a 47 years old male patient was with history of metastatic colon cancer with peritoneal carcinomatosis who was referred to the ED due to generalized weakness, poor oral intake that has been going on for more than a month, found to have dehydration, electrolyte abnormalities and small bowel obstruction on CT scan abdomen. Vitals/I&O's: Vital Signs Temp Pulse Resp BP Pulse Ox 98.2 F 97 18 142/95 H 95 05/20/17 14:32 05/20/17 14:32 05/20/17 14:32 05/20/17 14:32 05/20/17 14:32 Oxygen Delivery Method Room Air Weight: 65.9 kg Body Mass Index (BMI) 20.7 Intake and Output for Last 24 Hours 05/18/17 05/19/17 05/20/17 23:59 23:59 23:59 Intake Total 1508 / 1508 Output Total 200 / 200 Balance 1308 / 1308 General: Alert, Oriented x3 HEENT: Atraumatic Oral: Moist Mucosa Neck: Supple, No JVD Lungs: Clear to auscultation Cardiovascular: Regular rate, Normal S1, Normal S2 Abdomen: Bowel Sounds Present, Non Tender, Distended Laboratory Results 05/20/17 05:50: WBC 9.8, RBC 3.98 L, Hgb 12.0 L, Hct 37.2 L, MCV 93.5, MCH 30.2 , MCHC 32.3, RDW 14.5, RDW Differential 49.3 H, Plt Count 315, MPV 9.4, Immature Gran % (Auto) 1.200 H, Neut % (Auto) 73.5 H, Lymph % (Auto) 10.6 L, [place] % (Auto) 13.7 H, Eos % (Auto) 0.8, Baso % (Auto) 0.2, Absolute Neuts (auto ) 7.2, Absolute Lymphs (auto) 1.03, Total Counted Not Reportable 05/20/17 05:50: Sodium 133 L, Potassium 2.8 L, Chloride 90 L, Carbon Dioxide 31.0, Anion Gap 12, BUN 23 H, Creatinine 1.21, Estim Creat Clear Calc 69.27, Est GFR (MDRD) Af Amer 82, Est GFR (MDRD) Non-Af 68, BUN/Creatinine Ratio 19.0, Glucose 89, Calcium 7.9 L Current Medications Heparin Sodium (Beef Lung) (Heparin 500 Unit/5 Ml (100/Ml)) 500 unit IV UD PRN PRN Reason: HEPARIN FLUSH Heparin Sodium (Porcine) (Heparin Na) 5,000 unit SC Q8 [facility] Last Admin: 05/20/17 14:34 Dose: Not Given Famotidine (Pepcid 20mg) 20 mg in 50 mls @ 150 mls/hr IV Q12 [facility] Last Admin: 05/20/17 10:33 Dose: 150 mls/hr Potassium Chloride/Sodium Chloride () 1,000 mls @ 100 mls/hr IV .Q10H [facility] Last Admin: 05/20/17 12:49 Dose: 100 mls/hr Morphine Sulfate (Morphine) 1 - 2 mg IV Q3H PRN PRN PRN Reason: SEVERE PAIN (6-10/10) Last Admin: 05/20/17 05:44 Dose: 2 mg Nutritional Formula (Lactose Free) (Ensure Clear) 120 ml PO 4X/DAY [facility] Last Admin: 05/20/17 14:33 Dose: 120 ml Ondansetron HCl (Zofran) 4 mg IV Q6H PRN PRN PRN Reason: NAUSEA/VOMITING Last Admin: 05/20/17 12:50 Dose: 4 mg Promethazine HCl (Phenergan (Ll)) 6.25 mg IV Q6H PRN PRN PRN Reason: NAUSEA/VOMITING Last Admin: 05/20/17 05:44 Dose: 6.25 mg Sodium Chloride () 5 - 30 ml IV UD PRN PRN Reason: SALINE FLUSH Last Admin: 05/20/17 12:49 Dose: 20 ml Sodium Chloride () 10 ml IV UD PRN PRN Reason: VAD FLUSH Assessment/Plan 1 Recurrent small bowel obstruction secondary to metastatic colon cancer with peritoneal carcinomatosis. Patient has poor oral intake given IV fluids and electrolyte replacement. 2 metastatic colon cancer with peritoneal carcinomatosis; palliative/hospice consult for comfort focused care. 3 electrolyte abnormality; this will be corrected. 4 generalized weakness/physical debility/functional decline due to #2, supportive management. Code Visit Inpatient E&M: 43688 Subs Hosp L2
--- NOTE | 2017-05-20 15:58 | CASEMGMT ---
Social Work Note Call from BERNA Farnsworth, that Mila from [facility] had called stating Dr. Haynes called Dr. Rodriguez with a verbal order for a hospice consult. Face to face with the pt and introduced self and role at [facility]. The pt reports that [place] 3 [place] for approximately 2 hrs and is not ready for this services. Declines to have hospice consulted at this time. Pt would like to continue with aggressive treatment including the TPN mentioned by his oncologist. Support provided and pt made aware that SW is available if needs arise. Placed call to Mila at [facility] [phone] to inform that pt was not ready for hospice consult at this time. Plan: Home Farheen Knight, [employer], [employer] FIRST [employer]
--- NOTE | 2017-05-20 17:03 | NURSING ---
Call placed to Dr. beebe office, spoke with Dr. Mariano who stated that pt already had spoke with hospice and Dr. Rodriguez and is refusing services at this time
[2017-05-21] VITALS (8 sets, daily range): BP systolic 130–159; BP diastolic 83–116; PULSE 89–110; RESP 14–19; TEMP 36.5–37; O2SAT 97–98
--- NOTE | 2017-05-21 09:34 | PCM.PN.HOSP ---
Subjective: CC: generalized weakness, poor oral intake This is a 47 years old male patient was with history of metastatic colon cancer with peritoneal carcinomatosis who was referred to the ED due to generalized weakness, poor oral intake that has been going on for more than a month, he was found to be dehydrated with electrolyte abnormalities and he has recurrent small bowel obstruction on CT scan abdomen. He was seen on consultation by Dr. Haynes his oncologist who recommended palliative care and hospice for comfort focused care but the patient declined this at this time. Vitals/I&O's: Vital Signs Temp Pulse Resp BP Pulse Ox 98.6 F 89 18 136/95 H 97 05/21/17 01:56 05/21/17 04:07 05/21/17 01:56 05/21/17 01:56 05/21/17 01:56 Oxygen Delivery Method Room Air Weight: 65.9 kg Body Mass Index (BMI) 20.7 Intake and Output for Last 24 Hours 05/19/17 05/20/17 05/21/17 23:59 23:59 23:59 Intake Total 2326 / 2326 1378 / 1378 Output Total 400 / 400 550 / 550 Balance 1926 / 1926 828 / 828 General: Alert, Oriented x3 Neck: Supple, No JVD Lungs: Clear to auscultation Cardiovascular: Regular rate, Normal S1, Normal S2 Abdomen: Bowel Sounds Present, Non Tender, Non-Distended Extremities: No clubbing, No edema Neurological: Deep Tendon Reflexes 2+/4 and Symmetrical, Neuro grossly intact, Motor Exam 5/5 strength throughout Current Medications Heparin Sodium (Beef Lung) (Heparin 500 Unit/5 Ml (100/Ml)) 500 unit IV UD PRN PRN Reason: HEPARIN FLUSH Heparin Sodium (Porcine) (Heparin Na) 5,000 unit SC Q8 [facility] Last Admin: 05/21/17 06:00 Dose: Not Given Famotidine (Pepcid 20mg) 20 mg in 50 mls @ 150 mls/hr IV Q12 [facility] Last Admin: 05/20/17 23:00 Dose: 150 mls/hr Potassium Chloride/Sodium Chloride () 1,000 mls @ 100 mls/hr IV .Q10H [facility] Last Admin: 05/20/17 23:02 Dose: 100 mls/hr Multivitamins 10 ml/ Chromium/Copper/Manganese/Seleni/Zn 1 ml/ Folic Acid 1 mg/Famotidine 20 mg/ Amino Acids/Electrolytes 2,011 mls @ 84 mls/hr IV .[id number] [facility] Stop: 05/22/17 15:48 Morphine Sulfate (Morphine) 1 - 2 mg IV Q3H PRN PRN PRN Reason: SEVERE PAIN (6-1010) Last Admin: 05/20/17 23:00 Dose: 2 mg Nutritional Formula (Lactose Free) (Ensure Clear) 120 ml PO 4X/DAY [facility] Last Admin: 05/20/17 22:55 Dose: Not Given Ondansetron HCl (Zofran) 4 mg IV Q6H PRN PRN PRN Reason: NAUSEA/VOMITING Last Admin: 05/20/17 12:50 Dose: 4 mg Promethazine HCl (Phenergan (Ll)) 6.25 mg IV Q6H PRN PRN PRN Reason: NAUSEA/VOMITING Last Admin: 05/20/17 05:44 Dose: 6.25 mg Sodium Chloride () 5 - 30 ml IV UD PRN PRN Reason: SALINE FLUSH Last Admin: 05/20/17 23:02 Dose: 10 ml Sodium Chloride () 10 ml IV UD PRN PRN Reason: VAD FLUSH Assessment/Plan 1 Recurrent small bowel obstruction secondary to metastatic colon cancer with peritoneal carcinomatosis. Patient has poor oral intake , He is severely malnourished, we will start him on TPN. 2 Metastatic colon cancer with peritoneal carcinomatosis; oncology recommends palliative/hospice consultation but patient declined this at this time. 3 Electrolyte abnormality; this will be corrected. 4 Generalized weakness/physical debility/functional decline due to #2, supportive care. 5. DVT prophylaxis with subcutaneous heparin. Code Visit Inpatient E&M: 51858 Subs Hosp L2
--- NOTE | 2017-05-21 09:55 | PN_ITS ---
Subjective: CC: generalized weakness, poor oral intake This is a 47 years old male patient was with history of metastatic colon cancer with peritoneal carcinomatosis who was referred to the ED due to generalized weakness, poor oral intake that has been going on for more than a month, he was found to be dehydrated with electrolyte abnormalities and he has recurrent small bowel obstruction on CT scan abdomen. He was seen on consultation by Dr. Haynes his oncologist who recommended palliative care and hospice for comfort focused care but the patient declined this at this time. Vitals/I&O's: Vital Signs Temp Pulse Resp BP Pulse Ox 98.6 F 89 18 136/95 H 97 05/21/17 01:56 05/21/17 04:07 05/21/17 01:56 05/21/17 01:56 05/21/17 01:56 Oxygen Delivery Method Room Air Weight: 65.9 kg Body Mass Index (BMI) 20.7 Intake and Output for Last 24 Hours 05/19/17 05/20/17 05/21/17 23:59 23:59 23:59 Intake Total 2326 / 2326 1378 / 1378 Output Total 400 / 400 550 / 550 Balance 1926 / 1926 828 / 828 General: Alert, Oriented x3 Neck: Supple, No JVD Lungs: Clear to auscultation Cardiovascular: Regular rate, Normal S1, Normal S2 Abdomen: Bowel Sounds Present, Non Tender, Non-Distended Extremities: No clubbing, No edema Neurological: Deep Tendon Reflexes 2+/4 and Symmetrical, Neuro grossly intact, Motor Exam 5/5 strength throughout Current Medications Heparin Sodium (Beef Lung) (Heparin 500 Unit/5 Ml (100/Ml)) 500 unit IV UD PRN PRN Reason: HEPARIN FLUSH Heparin Sodium (Porcine) (Heparin Na) 5,000 unit SC Q8 [facility] Last Admin: 05/21/17 06:00 Dose: Not Given Famotidine (Pepcid 20mg) 20 mg in 50 mls @ 150 mls/hr IV Q12 [facility] Last Admin: 05/20/17 23:00 Dose: 150 mls/hr Potassium Chloride/Sodium Chloride () 1,000 mls @ 100 mls/hr IV .Q10H [facility] Last Admin: 05/20/17 23:02 Dose: 100 mls/hr Multivitamins 10 ml/ Chromium/Copper/Manganese/Seleni/Zn 1 ml/ Folic Acid 1 mg/ Famotidine 20 mg/ Amino Acids/Electrolytes 2,011 mls @ 84 mls/hr IV .[id number] [facility] Stop: 05/22/17 15:48 Morphine Sulfate (Morphine) 1 - 2 mg IV Q3H PRN PRN PRN Reason: SEVERE PAIN (6-1010) Last Admin: 05/20/17 23:00 Dose: 2 mg Nutritional Formula (Lactose Free) (Ensure Clear) 120 ml PO 4X/DAY [facility] Last Admin: 05/20/17 22:55 Dose: Not Given Ondansetron HCl (Zofran) 4 mg IV Q6H PRN PRN PRN Reason: NAUSEA/VOMITING Last Admin: 05/20/17 12:50 Dose: 4 mg Promethazine HCl (Phenergan (Ll)) 6.25 mg IV Q6H PRN PRN PRN Reason: NAUSEA/VOMITING Last Admin: 05/20/17 05:44 Dose: 6.25 mg Sodium Chloride () 5 - 30 ml IV UD PRN PRN Reason: SALINE FLUSH Last Admin: 05/20/17 23:02 Dose: 10 ml Sodium Chloride () 10 ml IV UD PRN PRN Reason: VAD FLUSH Assessment/Plan 1 Recurrent small bowel obstruction secondary to metastatic colon cancer with peritoneal carcinomatosis. Patient has poor oral intake , He is severely malnourished, we will start him on TPN. 2 Metastatic colon cancer with peritoneal carcinomatosis; oncology recommends palliative/hospice consultation but patient declined this at this time. 3 Electrolyte abnormality; this will be corrected. 4 Generalized weakness/physical debility/functional decline due to #2, supportive care. 5. DVT prophylaxis with subcutaneous heparin. Code Visit Inpatient E&M: 43092 Subs Hosp L2
[2017-05-21] MEDS: Ondansetron 4 MG/2 ML Vial IV (11:13)
[2017-05-21] MEDS: Fat Emulsions 20% 250 ML IV (15:17)
[2017-05-21] MEDS: oxyCODONE 5 MG Tablet PO (21:14)
[2017-05-22 01:59] VITALS: PULSE 94
[2017-05-22 06:23] LABS: Anion Gap 7 (5-15); BUN 20 mg/dL (7-18); BUN/Creat Ratio 17.1 RATIO (10-20); Calcium,Total 7.4 mg/dL (8.5-10.1); Chloride 103 mmol/L (98-107); Creatinine, Serum 1.17 mg/dL (0.70-1.30); EST Glomerular Filtration Rate 71 mL/min (>60); Est Glom Filt Rate - Afr Amer 85 mL/min (>60); Estimated Creatinine Clearance 71.97 ml/min; Glucose 191 mg/dL (74-106); Potassium 3.3 mmol/L (3.5-5.1); Sodium Level 138 mmol/L (136-145)
[2017-05-22 07:25] VITALS: PULSE 96
[2017-05-22 07:52] LABS: Bedside Glucose 183 mg/dL (70-110)
[2017-05-22 09:03] VITALS: BP 148/99; PULSE 110; RESP 18; TEMP 36.8; O2SAT 99
[2017-05-22] MEDS: 0.9% NaCl Peripheral Flush Adult/Peds IV (09:11)
[2017-05-22] MEDS: Ondansetron 4 MG/2 ML Vial IV (09:11)
--- NOTE | 2017-05-22 10:40 | NURSING ---
Report called to Peggy at [facility].
--- NOTE | 2017-05-23 09:04 | DS.PCM_ITS ---
Discharge Date and Diagnosis Date of Admission: 05/19/17 Date of Discharge: 05/22/17 - Primary Discharge Diagnosis #1 Small bowel obstruction secondary to metatstatic colon cancer #2 Hypokalemia #3 Moderate protein and caloric malnutr - Secondary Discharge Diagnosis Chronic Problems Colon cancer metastasized to liver (Chronic) Hospital Course and Treatment Operations: None Procedures: None Summary of Care Provided: The patient is a 47 year old M who was seen in the emergency room at [facility] with chief complaint of generalized weakness and poor oral intake over the past several weeks. Patient has a history of metastatic colon cancer to the lungs and liver. Workup in the emergency room included labs which showed a potassium of 2.9, CT the abdomen showed small bowel obstruction as well as multiple liver lesions consistent with metastases, ascites, and bilateral hydroureteronephrosis. Patient was given IV fluids, potassium was given to the patient in the ER, the hospitalist service was called to admit the patient for small bowel obstruction. Patient was admitted to [place] [id number] and seen by oncology, he was n.p.o. and TPN was started on the patient, multiple discussions were carried out with the patient concerning palliative/hospice care , patient desired to continue aggressive treatment of his cancer including surgery if necessary, oncology talked with the patient about this and he refused hospice consultation. Patient had an appointment upcoming at the [facility] in [place] to see a surgeon, I felt it was prudent to transfer the patient to [facility] for further care. On 05/22/17, patient was seen and examined felt in stable condition for transfer to [facility] for further care and surgical consultation. Prognosis overall is poor. Home Medications: Medications to take at Discharge Omeprazole [Prilosec] 20 mg PO DAILY 08/06/15 Oxycodone HCl/Acetaminophen [Percocet 5-325] 1 tablet PO Q6H PRN PRN 08/06/15 Primary Care Physician: Care Physician,No Primary [Primary Care Provider] - Disposition: Acute care Hospital Minutes spent on discharge:: 35 Patient Condition:: Stable Meaningful Use Info Meaningful Use Diagnoses (Choose all that apply): None applicable Code Visit Inpatient E&M: 45472 Disch Hosp
== END 2017-05-22 11:40 | disposition short-term general hospital (02) | DRG 374 ==
LOC: ED 20:04 → MS3 23:12
PROVIDERS: Internal Medicine; Admitting Provider Hospitalist; Emergency Provider Emergency Medicine; Visit Provider Internal Medicine
DX: C18.9 Malignant neoplasm of colon, unspecified (principal); E43 Unspecified severe protein-calorie malnutrition; C78.02 Secondary malignant neoplasm of left lung; C78.01 Secondary malignant neoplasm of right lung; C78.6 Secondary malignant neoplasm of retroperitoneum and peritoneum; E86.0 Dehydration; E83.51 Hypocalcemia; C78.7 Secondary malignant neoplasm of liver and intrahepatic bile duct; E87.1 Hypo-osmolality and hyponatremia; N13.1 Hydronephrosis with ureteral stricture, not elsewhere classified; Z79.899 Other long term (current) drug therapy; Z90.49 Acquired absence of other specified parts of digestive tract; E87.6 Hypokalemia; Z68.20 Body mass index [BMI] 20.0-20.9, adult
CPT/HCPCS: 74177; 80048; 80053; 82962; 83690; 83735; 84134; 85025; 97802; 99281; J7030; J7050; J7120; Q9967; A4216; J2405

== ENCOUNTER → 2017-05-25 05:34 | Outpatient (CLI) | payer MEDICARE, SELFPAY | PROVIDERS: Visit Provider Urology | DX: Z01.818 Encounter for other preprocedural examination (principal) ==